=== PATIENT | male | born 1955 | race African-American/Black ===

== ENCOUNTER → 2020-12-24 10:18 | Outpatient (CLI) | payer MEDICARE, SELFPAY ==
--- NOTE | ~2020-12-24 | XR_ITS ---
EXAMINATION: XR abdomen/kub 1V EXAM DATE: 12/24/2020 10:42 INDICATION: Right flank pain for 2 weeks. History kidney stones with lithotripsy 2009. History hernia repair 2003. TECHNIQUE: Frontal projection of the upper abdomen, frontal projection lower abdomen/pelvis for inter pretation. Comparison is made to prior examination from 04/19/2014. FINDINGS: There is moderate amount of colonic stool and gas. No small bowel dilation, nonobstructiv e bowel gas pattern. Calcifications in the pelvis are believed to be phleboliths. No calcifications overlying the renal contours. There is no organomegaly suspected. There is elevated right hemidiap hragm. There are mild bony degenerative changes. IMPRESSION: 1. No suspicious calcifications. 2. Elevated right hemidiaphragm; paralysis not excludable. Consider fluoroscopic guided sniff test. Reviewed, dictated and finalized at location A. IMPRESSION: 1. No suspicious calcifications. 2. Elevated right hemidiaphragm; paralysis not excludable. Consider fluoroscopi c guided sniff test.
== END ==
PROVIDERS: PCP Internal Medicine; Visit Provider Urology
DX: N20.0 Calculus of kidney (principal)
CPT/HCPCS: 74018

== ENCOUNTER 2022-03-26 08:51 | Outpatient (CLI) | payer MEDICARE, SELFPAY ==
--- NOTE | ~2022-03-26 | US_ITS ---
US abdomen complete EXAMINATION: US Abdomen Complete INDICATION: Leukopenia PROCEDURE: Realtime High Resolution abdomen ultrasound. COMPARISON: No prior studies for comparison FINDINGS: Gallbladder is surgically absent. Common bile duct measures 2.9 mm. Liver echotexture is normal. There are multiple liver cysts, largest measuring 2.1 cm.. Pancreas wit hin normal limits. Pancreatic tail is obscured by bowel gas. Spleen is unremarkeable. Renal echotex ture is within normal limits bilaterally without hydronephrosis, contour deforming mass or renal ston e. Right kidney measures 10.3 cm. Left kidney measures 10.6 cm. Visualized aspects of the aorta and IVC are within normal limits. Portal vein is patent. IMPRESSION: 1: Liver cysts. 2: Status post cholecystectomy. Reviewed, dictated and finalized at location A.
== END 2022-03-26 08:52 | disposition home or self-care (01) ==
PROVIDERS: PCP Internal Medicine; Visit Provider Internal Medicine Hematology & Oncology
DX: D72.819 Decreased white blood cell count, unspecified (principal); K76.89 Other specified diseases of liver; Z90.49 Acquired absence of other specified parts of digestive tract
CPT/HCPCS: 76700

== ENCOUNTER 2023-02-01 09:53 | Outpatient (CLI) | payer MEDICARE, SELFPAY ==
[2023-02-01 10:10] LABS: Basophils Percent Auto 0.5 % (0.2-1.2); Eosinophils Percent Auto 0.8 % (0-4.4); Hematocrit 41.3 % (42.0-52.0); Hemoglobin 13.5 g/dL (14.0-18.0); Immature Granulocyte Absolute 0.02 K/mm3 (0.00-0.031); Immature Granulocyte Percent A 0.5 % (0-0.5); Lymphocytes Absolute Auto 1.67 K/mm3 (0.9-3.2); Mean Corpuscular HGB Conc 32.7 g/dl (32-36); Mean Corpuscular Hemoglobin 29.3 pg (26-34); Mean Corpuscular Volume 89.8 fl (80-100); Mean Platelet Volume 9.1 fl (7.4-10.4); Monocytes Absolute Auto 0.4 K/mm3 (0.1-0.6); Monocytes Percent Auto 10.3 % (2.6-8.5); Neutrophils Absolute Auto 1.8 K/mm3 (1.3-6.7); Neutrophils Percent Auto 45.9 % (45.5-73.1); Platelet Count Result 265 k/mm3 (150-375); Red Cell Distribution Width 13.3 % (11.5-14.5)
[2023-02-01 10:15] LABS: Blood Urea Nitrogen 13 mg/dL (8-26); Carbon Dioxide 30 mmol/L (22-30); Chloride 100 mmol/L (98-109); Estimated Glomerular Filt Rate > 60; Glucose 105 mg/dL (70-105); Ionized Calcium (POC) 1.17 mmol/L (1.11-1.31); Potassium 3.6 mmol/L (3.5-4.9); Sodium 139 mmol/L (138-146)
[2023-02-01 17:01] LABS: Alanine Aminotransferase 23 U/L (6-50); Albumin Level 4.4 g/dL (3.5-5.1); Alkaline Phosphatase 115 U/L (38-126); Anion Gap 6 mmol/L (8-16); Aspartate Amino Transferase 26 U/L (17-59); Bilirubin,Total 0.9 mg/dL (0.2-1.3); Blood Urea Nitrogen 14 mg/dL (9-20); Calcium 9.1 mg/dL (8.4-10.2); Carbon Dioxide 30 mmol/L (22-30); Chloride 101 mmol/L (98-107); Estimated Glomerular Filt Rate > 60; Glucose 101 mg/dL (65-110); Potassium 3.7 mmol/L (3.4-5.0); Sodium 137 mmol/L (137-145)
[2023-02-01 17:02] LABS: Iron 126 ug/dL (49-181)
[2023-02-01 17:17] LABS: Percent Iron Saturation 40 % (20-50)
[2023-02-01 18:05] LABS: Folic Acid 9.5 ng/mL (2.76->20)
== END 2023-02-01 09:54 | disposition home or self-care (01) ==
LOC: ANHLAB 09:54
PROVIDERS: PCP Internal Medicine; Visit Provider Internal Medicine Hematology & Oncology
DX: D72.819 Decreased white blood cell count, unspecified (principal); D64.9 Anemia, unspecified
CPT/HCPCS: 36415; 80047; 80053; 82607; 82728; 82746; 83540; 83550; 85025

== ENCOUNTER 2023-10-29 08:35 | Outpatient (CLI) | payer MEDICARE, SELFPAY ==
[2023-10-29 08:49] LABS: Basophils Percent Auto 0.6 % (0.2-1.2); Eosinophils Absolute Auto 0.1 K/mm3 (0-0.3); Eosinophils Percent Auto 1.4 % (0-4.4); Hematocrit 43.6 % (42.0-52.0); Hemoglobin 14.3 g/dL (14.0-18.0); Immature Granulocyte Absolute 0.01 K/mm3 (0.00-0.031); Immature Granulocyte Percent A 0.3 % (0-0.5); Lymphocytes Percent Auto 54.3 % (18.3-44.2); Mean Corpuscular HGB Conc 32.8 g/dl (32-36); Mean Corpuscular Hemoglobin 29.2 pg (26-34); Mean Platelet Volume 9.4 fl (7.4-10.4); Monocytes Absolute Auto 0.4 K/mm3 (0.1-0.6); Monocytes Percent Auto 11.1 % (2.6-8.5); Neutrophils Absolute Auto 1.1 K/mm3 (1.3-6.7); Neutrophils Percent Auto 32.3 % (45.5-73.1); Platelet Count Result 249 k/mm3 (150-375); Red Cell Distribution Width 12.9 % (11.5-14.5); White Blood Count 3.5 K/mm3 (4.5-10.0)
[2023-10-29 11:19] LABS: Iron 204 ug/dL (49-181)
[2023-10-29 11:25] LABS: Alanine Aminotransferase 23 U/L (6-50); Albumin Level 4.4 g/dL (3.5-5.1); Alkaline Phosphatase 99 U/L (38-126); Anion Gap 11 mmol/L (8-16); Aspartate Amino Transferase 29 U/L (17-59); Blood Urea Nitrogen 10 mg/dL (9-20); Calcium 9.4 mg/dL (8.4-10.2); Carbon Dioxide 29 mmol/L (22-30); Chloride 100 mmol/L (98-107); Estimated Glomerular Filt Rate > 60; Glucose 102 mg/dL (65-110); Potassium 3.8 mmol/L (3.4-5.0); Sodium 140 mmol/L (137-145)
[2023-10-29 11:32] LABS: Percent Iron Saturation 63 % (20-50)
[2023-10-29 12:26] LABS: Folic Acid 9.4 ng/mL (2.76->20)
== END 2023-10-29 08:36 | disposition home or self-care (01) ==
LOC: ANHLAB 08:36
PROVIDERS: PCP Internal Medicine; Visit Provider Internal Medicine Hematology & Oncology
DX: D72.819 Decreased white blood cell count, unspecified (principal); D64.9 Anemia, unspecified
CPT/HCPCS: 36415; 80053; 82607; 82728; 82746; 83540; 83550; 85025

== ENCOUNTER 2023-12-23 12:02 | Outpatient (CLI) | payer MEDICARE, SELFPAY ==
[2023-12-23 12:17] LABS: Hematocrit 44.5 % (42.0-52.0); Hemoglobin 14.4 g/dL (14.0-18.0); Mean Corpuscular HGB Conc 32.4 g/dl (32-36); Mean Corpuscular Hemoglobin 29.3 pg (26-34); Mean Corpuscular Volume 90.6 fl (80-100); Platelet Count Result 278 k/mm3 (150-375); Red Blood Count 4.91 M/mm3 (4.6-6.20); Red Cell Distribution Width 13.2 % (11.5-14.5)
[2023-12-23 12:18] LABS: Basophils Percent Auto 0.8 % (0.2-1.2); Eosinophils Absolute Auto 0.1 K/mm3 (0-0.3); Eosinophils Percent Auto 1.8 % (0-4.4); Immature Granulocyte Absolute 0.01 K/mm3 (0.00-0.031); Immature Granulocyte Percent A 0.3 % (0-0.5); Lymphocytes Absolute Auto 1.64 K/mm3 (0.9-3.2); Mean Platelet Volume 9.3 fl (7.4-10.4); Monocytes Absolute Auto 0.5 K/mm3 (0.1-0.6); Monocytes Percent Auto 12.3 % (2.6-8.5); Neutrophils Absolute Auto 1.8 K/mm3 (1.3-6.7); Neutrophils Percent Auto 43.8 % (45.5-73.1)
[2023-12-23 12:21] LABS: Blood Urea Nitrogen 18 mg/dL (8-26); Carbon Dioxide 28 mmol/L (22-30); Chloride 102 mmol/L (98-109); Estimated Glomerular Filt Rate > 60; Glucose 91 mg/dL (70-105); Ionized Calcium (POC) 1.22 mmol/L (1.11-1.31); Potassium 3.8 mmol/L (3.5-4.9); Sodium 143 mmol/L (138-146)
[2023-12-23 19:02] LABS: Vitamin B12 > 1000.0 pg/mL (239-931)
== END 2023-12-23 12:03 | disposition home or self-care (01) ==
LOC: ANHLAB 12:04
PROVIDERS: PCP Internal Medicine; Visit Provider Internal Medicine Hematology & Oncology
DX: D72.819 Decreased white blood cell count, unspecified (principal)
CPT/HCPCS: 36415; 80047; 82607; 82746; 85025

== ENCOUNTER 2024-12-21 13:02 | Outpatient (CLI) | payer MEDICARE, SELFPAY ==
[2024-12-21 13:20] LABS: Basophils Percent Auto 0.6 % (0.2-1.2); Eosinophils Absolute Auto 0.1 K/mm3 (0-0.3); Eosinophils Percent Auto 1.1 % (0-4.4); Hematocrit 40.8 % (42.0-52.0); Hemoglobin 13.5 g/dL (14.0-18.0); Immature Granulocyte Absolute 0.01 K/mm3 (0.00-0.031); Immature Granulocyte Percent A 0.2 % (0-0.5); Lymphocytes Absolute Auto 2.03 K/mm3 (0.9-3.2); Lymphocytes Percent Auto 43.5 % (18.3-44.2); Mean Corpuscular HGB Conc 33.1 g/dl (32-36); Mean Corpuscular Hemoglobin 29.8 pg (26-34); Mean Corpuscular Volume 90.1 fl (80-100); Mean Platelet Volume 9.8 fl (7.4-10.4); Monocytes Absolute Auto 0.6 K/mm3 (0.1-0.6); Monocytes Percent Auto 11.8 % (2.6-8.5); Neutrophils Percent Auto 42.8 % (45.5-73.1); Platelet Count Result 231 k/mm3 (150-375); Red Blood Count 4.53 M/mm3 (4.6-6.20); Red Cell Distribution Width 12.9 % (11.5-14.5); White Blood Count 4.7 K/mm3 (4.5-10.0)
--- OUTSIDE RECORDS SUMMARY | 2024-12-21 14:37 | XMS_ITS | Patient Health Record ---
Author Organization [facility] Office Address [address] [facility] [address] [facility] [address] [place] [address] Care Team Providers Care Platform Stapler Name Role Phone Prince Umair Unavailable [phone] REASON FOR REFERRAL No Information MEDICATIONS Medication SIG (Take, Route, Frequency, Duration) Notes Start Date End Date Status Furosemide 20 MG TAKE 1 TABLET EVERY DAY for 90 Active Calcitriol 0.25 MCG TAKE 1 CAPSULE EVERY OTHER DAY for 90 Active Vitamin D (Ergocalciferol) 1.25 MG (29132 UT) TAKE 1 CAPSULE ONE TIME WEEKLY for 90 Active Tamsulosin HCl 0.4 MG TAKE 1 CAPSULE ROSHNI RY DAY for 90 Active PROBLEMS Problem Type ICD Code Onset Dates Problem Status W/U Status Risk SNOMED Code Notes Problem Secondary hyperparathyroid ism, not elsewhere classified (E21.1) Active confirmed Secondary hyperparathyroidism (05436795) Problem Vitamin D deficiency, unspecified (E55.9) Active confirmed Vitamin D defic iency (49175745) Problem Anxiety disorder, unspecified (F41.9) Active confirmed Anxiety disorde r (192635998) Problem Chronic kidney disease, stage 2 (mild) (N18.2) Active confirmed Chronic kidne y disease stage 2 (709888193) Problem Renal osteodystrophy (N25.0) Active confirmed Renal osteodyst rophy (17483270) Problem Proteinuria, unspecified (R80.9) Active confirmed Proteinuria (19386933) Problem Essential hypertension (I10) Active confirmed Essential hypertension (38435412) Encounters Encounter Location Date Provider Diagnosis [place] [facility] [address] [facility] [address] [place] [address] 02/23/2024 Umair Morrison Chronic kidney disea se, stage 2 (mild) N18.2 ; Anxiety disorder, unspecified F41.9 ; Proteinuria, unspecified R80.9 ; Renal osteodystrophy N25.0 ; Secondary hyperparathyroidism, not elsewhere classified E21.1 and Vitamin D deficiency, unspecified E55.9 [facility] [address] [address] 05/24/2024 Umair Morrison Chronic kidney disea se, stage 2 (mild) N18.2 ; Essential hypertension I10 ; Renal osteodystrophy N25.0 ; Anxiety disorder, unspecified F41.9 ; Proteinuria, unspecified R80.9 ; Secondary hyperparathyroidism, not elsewhere classified E21.1 and Vitamin D deficiency, unspecified E55.9 [place] [facility] [address] [address] 08/23/2024 Umair Morrison Chronic kidney disea se, stage 2 (mild) N18.2 ; Anxiety disorder, unspecified F41.9 ; Proteinuria, unspecified R80.9 ; Renal osteodystrophy N25.0 ; Secondary hyperparathyroidism, not elsewhere classified E21.1 ; Vitamin D deficiency, unspecified E55.9 and Essential hypertension I10 [facility] [address] [address] 11/29/2024 Umair Morrison [facility] [place] [facility] [address] [place] [address] 12/06/2024 Umair Morrison Chronic kidney disea se, stage 2 (mild) N18.2 ; Anxiety disorder, unspecified F41.9 ; Proteinuria, unspecified R80.9 ; Renal osteodystrophy N25.0 ; Secondary hyperparathyroidism, not elsewhere classified E21.1 ; Vitamin D deficiency, unspecified E55.9 ; Essential hypertension I10 and Hypo-osmolality and hyponatremia E87.1 [facility] [address] [address] 12/06/2024 Umair Morrison ASSESSMENTS Encounter Date Diagnosis Assessment Notes Treatment Notes Treatment Clinical Notes Section Notes 02/23/2024 Chronic kidney disease, stage 2 (mild) (ICD-10 - N18.2) 05/24/2024 Chronic kidney disease, stage 2 (mild) (ICD-10 - N18.2) 05/24/2024 Essential hypertension (ICD-10 - I10) 08/23/2024 Chronic kidney disease, stage 2 (mild) (ICD-10 - N18.2) 12/06/2024 Anxiety disorder, unspecified (ICD-10 - F41.9) 12/06/2024 Chronic kidney disease, stage 2 (mild) (ICD-10 - N18.2) 12/06/2024 Proteinuria, unspecified (ICD-10 - R80.9) 08/23/2024 Anxiety disorder, unspecified (ICD-10 - F41.9) 05/24/2024 Renal osteodystrophy (ICD-10 - N25.0) 02/23/2024 Anxiety disorder, unspecified (ICD-10 - F41.9) 05/24/2024 Anxiety disorder, unspecified (ICD-10 - F41.9) 02/23/2024 Proteinuria, unspecified (ICD-10 - R80.9) 08/23/2024 Proteinuria, unspecified (ICD-10 - R80.9) 12/06/2024 Renal osteodystrophy (ICD-10 - N25.0) 12/06/2024 Secondary hyperparathyroidism , not elsewhere classified (ICD-10 - E21.1) 08/23/2024 Renal osteodystrophy (ICD-10 - N25.0) 02/23/2024 Renal osteodystrophy (ICD-10 - N25.0) 05/24/2024 Proteinuria, unspecified (ICD-10 - R80.9) 02/23/2024 Secondary hyperparathyroidism , not elsewhere classified (ICD-10 - E21.1) 05/24/2024 Secondary hyperparathyroidism , not elsewhere classified (ICD-10 - E21.1) 08/23/2024 Secondary hyperparathyroidism , not elsewhere classified (ICD-10 - E21.1) 12/06/2024 Vitamin D deficiency, unspecified (ICD-10 - E55.9) 08/23/2024 Vitamin D deficiency, unspecified (ICD-10 - E55.9) 05/24/2024 Vitamin D deficiency, unspecified (ICD-10 - E55.9) 12/06/2024 Essential hypertension (ICD-10 - I10) 02/23/2024 Vitamin D deficiency, unspecified (ICD-10 - E55.9) 12/06/2024 Hypo-osmolality and hyponatremia (ICD-10 - E87.1) 08/23/2024 Essential hypertension (ICD-10 - I10) PLAN OF TREATMENT Next Appt Details Provider Name:Umair Morrison , 01/17/2025 04:30:00 PM, [address] [facility], [facility] [address], [place], [address],
--- OUTSIDE RECORDS SUMMARY | 2024-12-21 14:37 | XMS_ITS ---
Author Organization [facility] Address [address] [place] [address] Care Team Providers Care Staff Research Scientist Name Role Phone Umair Morrison Unavailable [phone] Encounters Encounter Location Date Provider Diagnosis [facility] [place] [facility] [address] [place] [address] 12/06/2024 Umair Morrison Chronic kidney disea se, stage 2 (mild) N18.2 ; Anxiety disorder, unspecified F41.9 ; Proteinuria, unspecified R80.9 ; Renal osteodystrophy N25.0 ; Secondary hyperparathyroidism, not elsewhere classified E21.1 ; Vitamin D deficiency, unspecified E55.9 ; Essential hypertension I10 and Hypo-osmolality and hyponatremia E87.1 ASSESSMENTS Encounter Date Diagnosis Assessment Notes Treatment Notes Treatment Clinical Notes Section Notes 12/06/2024 Chronic kidney disease, stage 2 (mild) (ICD-10 - N18.2) 12/06/2024 Anxiety disorder, unspecified (ICD-10 - F41.9) 12/06/2024 Proteinuria, unspecified (ICD-10 - R80.9) 12/06/2024 Renal osteodystrophy (ICD-10 - N25.0) 12/06/2024 Secondary hyperparathyroidism , not elsewhere classified (ICD-10 - E21.1) 12/06/2024 Vitamin D deficiency, unspecified (ICD-10 - E55.9) 12/06/2024 Essential hypertension (ICD-10 - I10) 12/06/2024 Hypo-osmolality and hyponatremia (ICD-10 - E87.1) PLAN OF TREATMENT Next Appt Details Provider Name:Umair Morrison , 01/17/2025 04:30:00 PM, [address] [facility], [facility] [address], [place], [address], Progress Notes * Dinh CRUZOB: 3 (69 yo F)Acc No.[id number]:12/06/2024 Progress Notes Patient: Masha CRUZ Provider: MD JERAMIE, Macey.Yair.Wayne.P, F.A.S.N. :1955 Age:69 Y Sex:Female Date:12/06/2024 Address:[address] [place] [address] Subjective: * Chief Complaints: * * Medical History: Objective: Assessment: * Assessment: 1. Chronic kidney disease, stage 2 (mild) - N18.2 (Primary) 2. Anxiety disorder, unspecified - F41.9 3. Proteinuria, unspecified - R80.9 4. Renal osteodystrophy - N25.0 5. Secondary hyperparathyroidism, not elsewhere classified - E21.1 6. Vitamin D deficiency, unspecified - E55.9 7. Essential hypertension - I10 8. Hypo-osmolality and hyponatremia - E87.1 Plan: * Treatment: * Billing Information: * Visit Code: 74135 Office Visit, Est Pt., Level 4. * Procedure Codes: * Sign off status: Pending * Provider: MD JERAMIE, Macey.Yair.Wayne.P, F.A.S.N. Date: 12/06/2024
--- OUTSIDE RECORDS SUMMARY | 2024-12-21 14:38 | XMS_ITS | Clinical Summary ---
Author Organization [facility] Address [address] [facility] [place] [address] Care Team Providers Care Ecological Modeler Name Role Phone Rafael Oneal MD Primary Care Provider Allergies Active Allergy Reactions Criticality Noted Date Comments Enalapril Hives High 03/12/2022 Lisinopril Hives High 03/12/2022 Medications hydroCHLOROth iazide (MICROZIDE) 12.5 mg capsule hydrochlorothiazide 12.5 mg capsule Active atorvastatin (LIPITOR) 20 mg tablet atorvastatin 20 mg tablet Active metFORMIN (GLUCOPHAGE) 500 mg tablet metformin 500 mg tablet Active amLODIPine (NORVASC) 10 mg tablet amlodipine 10 mg tablet TAKE 1 TABLET EVERY DAY Active metoprolol succinate (TOPROL XL) 25 mg Extended Release 24 hour tablet Take 25 mg by mouth daily. 02/26/20 22 Active latanoprost (XALATAN) 0.005 % solution latanoprost 0.005 % eye drops Active aspirin (BRIANDA CHEWABLE) 81 mg Tablet, Chewable Take 81 mg by mouth daily. Active brimonidine-t imoloL (Combigan) 0.2-0.5 % solution 1 Drop every 12 hours. Active cyanocobalami n 1,000 mcg Tablet Take 1,000 mcg by mouth daily. Active Active Problems Problem Noted Date Diagnosed Date Leukopenia 03/12/2022 Encounters Date Type Department Care Team Description 12/18/2024 External Device Data STL ABSTRACTION Provider, Abstract 12/05/2024 External Device Data [facility] ABSTRACTION Provider, Abstract 11/08/2024 External Device Data [facility] ABSTRACTION Provider, Abstract 11/02/2024 External Device Data ST[facility] ABSTRACTION Provider, Abstract from Last 3 Months Family History Medical History Relation Name Comments Diabetes Brother 1 Brain Cancer Brother 4 Thyroid Cancer Father Stroke Mother Relation Name Status Comments Brother 1 Alive Brother 2 Alive Brother 3 Alive Brother 4 Alive Father Mother Sister Alive Social History Tobacco Use Types Packs/Day Years Used Date Smoking Tobacco: Never Smokeless Tobacco: Never Tobacco Cessation:Counseling Given: Not Answered Alcohol Use Standard Drinks/Week Comments Yes 0 (1 standard drink = 0.6 oz pur e alcohol) Sex and Gender Information Value Date Recorded Sex Assigned at Not on file Legal Sex Male 11:22 AM CDT Gender Identity Not on file Sexual Orientation Not on file Last Filed Vital Signs Vital Sign Reading Time Taken Comments Blood Pressure 125/62 12/23/2023 1:05 PM CDT Pulse 77 12/23/2023 1:05 PM CDT Temperature 36.4 C (97.6 F) 12/23/2023 1:05 PM CDT Respiratory Rate 14 12/23/2023 1:05 PM CDT Oxygen Saturation 98% 12/23/2023 1:05 PM CDT Inhaled Oxygen Concentration - - Weight 64.4 kg (142 lb) 12/23/2023 1:05 PM CDT Height 175.3 cm (5' 9 ) 08/03/2022 9:20 AM CDT Body Mass Index 20.97 08/03/2022 9:20 AM CDT Plan of Treatment Upcoming Encounters Date Type Department Care Team (Late st Contact Info) Description 12/25/2024 11:00 AM CDT Office Visit [facility] Oncology and Hematology [facility] [address] [facility] [address] [place] [address] Mello Juan MD [address] [facility] [address] [place] [address] Health Maintenance Due Date Last Done Comments DIABETES ANNUAL FOOT EXAM 1971 DIABETES ANNUAL RETINAL EXAM 1971 DIABETES HBA1C Q 6 MONTHS 1971 DIABETES MICROALBUMIN ANNUAL SCREEN 1971 LDL CHOLESTEROL ANNUAL 1971 DTAP/TDAP/TD VACCINES (1 - Tdap) 01/09/1972 COLORECTAL SCREENING 1998 Colorectal Cancer Screening 1998 FIT-DNA Q 3 years 1998 FIT/FOBT Q 1 year 1998 Flex Sig/CT Colonography Q 5 years 1998 ZOSTER VACCINE (1 of 2) 2003 INFLUENZA VACCINE (#1) 2024 , 07/16/2022, 08/04/2021, Additional history exists Medicare Ad[place] ([place]) Preventative Visit/Annual Wellness Visit 10/11/2024 RSV VACCINE (60+ or ) (1 - 1-dose 75+ series) 01/09/2028 PNEUMOCOCCAL VACCINE 50+ YEARS Completed 08/08/2019 , 01/10/2018 Insurance [employer] [facility] MCR Care Teams Ecological Modeler Relationship Specialty Start Date End Date Rafael Oneal MD PCP - General Internal Medicine 03/12/22
--- OUTSIDE RECORDS SUMMARY | 2024-12-21 14:38 | XMS_ITS ---
Author Organization [facility] Address [address] [place] [address] Care Team Providers Care Box Cutter Name Role Phone Prince Umair Unavailable [phone] MEDICATIONS Medication SIG (Take, Route, Frequency, Duration) Notes Start Date End Date Status Ciprofloxacin HCl 500 MG 1 tablet Orally every 12 hrs for 10 days 12/06/2024 12/16/2024 Active Encounters Encounter Location Date Provider Diagnosis [place] [facility] [address] [facility] [address] [place] [address] 12/06/2024 Umair Morrison PLAN OF TREATMENT Medication Medication Name Sig Start Date Stop Date Notes Ciprofloxacin HCl 500 MG 1 tablet Orally every 12 hrs for 10 days 12/06/2024 12/16/2024 Next Appt Details Provider Name:Umair Morrison , 01/17/2025 04:30:00 PM, 20[address] [facility], [facility] [address], [place], [address], Progress Notes * Dinh CRUZOB: (69 yo F)Acc No.[id number]:12/06/2024 Patient: Masha CRUZ :1955 Age:69 Y Sex:Female Address:[address] [place] [address] * Refills Start Ciprofloxacin HCl Tablet, 500 MG, Orally, 20 Tablet, 1 tablet, every 12 hrs, 10 days * * Date:
--- OUTSIDE RECORDS SUMMARY | 2024-12-21 14:38 | XMS_ITS ---
Author Organization [facility] Address [address] [place] [address] Care Team Providers Care Park Guide Name Role Phone Prince Umair Unavailable [phone] Encounters Encounter Location Date Provider Diagnosis [place] [facility] [address] [facility] [address] [place] [address] 11/29/2024 Umair Morrison PLAN OF TREATMENT Next Appt Details Provider Name:Umair Morrison , 01/17/2025 04:30:00 PM, [address] [facility], [address], [place], [address], Progress Notes * Dinh CRUZOB: (69 yo F)Acc No.[id number]:11/29/2024 Progress Notes Patient: Masha CRUZ Provider: MD JERAMIE, Macey.Yair.C.P, F.A.S.N. :1955 Age:69 Y Sex:Female Date:11/29/2024 Address:[address] [place], [place] [id number] Subjective: * Chief Complaints: * * Medical History: Objective: Assessment: Plan: * Treatment: * Billing Information: * Visit Code: * Procedure Codes: * Sign off status: Pending * Provider: MD JERAMIE, Gómez.C.P, F.A.S.N. Date: 11/29/2024
--- OUTSIDE RECORDS SUMMARY | 2024-12-21 14:39 | XMS_ITS | CONTINUITY OF CARE DOCUMENT ---
Author Name shelley rosa Address Unknown Organization [facility] Address [address] [facility] [address] [place] [address] Phone [phone] Care Team Providers Care Warehouse Trainer Name Role Phone Brianna NASH, El Krishnamurthy Unavailable [phone] CHICHI VEE MD Unavailable GABO EARLY MD Unavailable PROBLEMS Condition Status Date Provider Notes Hypertension active El Reed MD Diabetes, Type 2 active El Reed MD Hyperlipidemia active El Reed MD Covid vaccine active El Reed MD PVC's active El Reed MD Cardiovascular Condition Screening active Sloan Reed MD Abnormal electrocardiogram active El Reed MD Palpitations active El Reed MD Cardiology examination active El lang MD ENCOUNTERS Date Type Provider Location Encounter Diag nosis - In-person encounter Office Visit El Reed MD [facility] - In-person encounter Office Visit El Reed MD [facility] Cardiology examination - In-person encounter Office Visit El Reed MD [facility] - In-person encounter Office Visit El Reed MD [facility] - In-person encounter Office Visit El Reed MD [facility] Palpitations - In-person encounter Office Visit El Reed MD [facility] - In-person encounter Office Visit El Reed MD [facility] - In-person encounter Office Visit El Reed MD [facility] HypertensionDiabetes, Type 2HyperlipidemiaCovid vaccinePVC'sCardiovascul ar Condition ScreeningAbnormal electrocardiogram VITAL SIGNS Date Observation Value Provider Body Mass Index (Ratio) 21.41 kg/m2 Sundeep Arora blood pressure, diastolic 70 mm[Hg] roxie [facility] blood pressure, systolic 132 mm[Hg] [facility] oxygen saturation, oximetry 98 % [facility] respiratory rate E&M 16 /min [facility] pulse rate 60 /min [facility] weight E&M 145 [lb_av] [facility] blood pressure, cuff size regular Rufina roxie [facility] height E&M 69 [in_i] [facility] Body Mass Index (Ratio) 21.41 kg/m2 Petros Sarmiento blood pressure, cuff size regular Que Grant blood pressure, diastolic 74 mm[Hg] Ta bitha Grant blood pressure, systolic 120 mm[Hg] Tab ithchelsea Grant oxygen saturation, oximetry 96 % Karlachelsea Grant pulse rate 71 /min Karla Rudy weight E&M 145 [lb_av] Karlachelsea Grant respiratory rate E&M 12 /min Karla Grant height E&M 69 [in_i] Karla Grant Body Mass Index (Ratio) 21.71 kg/m2 Sundeep Arora blood pressure, diastolic 70 mm[Hg] Li nkLogic blood pressure, systolic 131 mm[Hg] Marce kLogic blood pressure, cuff size regular Ja rret blood pressure, diastolic 70 mm[Hg] Ja rret blood pressure, systolic 131 mm[Hg] Jar ret pulse rate 70 /min Bebo respiratory rate E&M 12 /min Bebo oxygen saturation, oximetry 98 % Bebo weight E&M 147 [lb_av] Bebo y height E&M 69 [in_i] Bebo y Body Mass Index (Ratio) 21.26 kg/m2 Lalitha Reed MD blood pressure, diastolic -1 mm[Hg] María myraLogterrie blood pressure, systolic 115 mm[Hg] Marce Muraliogic blood pressure, diastolic 69 mm[Hg] Cristin shaw Tena blood pressure, systolic 115 mm[Hg] [facility] analy Tena oxygen saturation, oximetry 98 % Twila Tena pulse rate 71 /min Twila Tena respiratory rate E&M 18 /min Twila Tena weight E&M 144 [lb_av] Twila Tena blood pressure, cuff size regular valeria Tena height E&M 69 [in_i] Twila Madsen Body Mass Index (Ratio) 22.38 kg/m2 Lalitha Reed MD blood pressure, diastolic 82 mm[Hg] María myraLogterrie blood pressure, systolic 138 mm[Hg] Marce Carrionogterrie blood pressure, diastolic 82 mm[Hg] [facility] blood pressure, systolic 138 mm[Hg] Marya gonzalez Levi oxygen saturation, oximetry 98 % Keesha Levi pulse rate 72 /min Keesha Levi respiratory rate E&M 18 /min Keesah Krishna carl weight E&M 151.6 [lb_av] Keesha Levi height E&M 69 [in_i] Keesha Levi Body Mass Index (Ratio) 21.85 kg/m2 Lalitha Reed MD blood pressure, cuff size large Ke rri Jesseuenenfeldvic blood pressure, diastolic 77 mm[Hg] Ke rri Smithanenfeldvic blood pressure, systolic 134 mm[Hg] Zack ri Mindy oxygen saturation, oximetry 98 % Shahida Mindy respiratory rate E&M 14 /min Shahida G jocelyneenenfelder pulse rate 83 /min Shahida Xochitl lder weight E&M 148 [lb_av] Shahida Smithanenfe lder height E&M 69 [in_i] Shahida Gruenenfe lder Body Mass Index (Ratio) 21.85 kg/m2 Lalitha Reed MD blood pressure, diastolic 78 mm[Hg] María nkLogic blood pressure, systolic 148 mm[Hg] Marce kLogic blood pressure, diastolic 78 mm[Hg] Ca therine Anand blood pressure, systolic 148 mm[Hg] Cat herine Anand oxygen saturation, oximetry 97 % Anamika Anand respiratory rate E&M 16 /min Catheri ne Kinde pulse rate 66 /min Anamika Anand weight E&M 148 [lb_av] Anamika Anand blood pressure, cuff size large Ca therine Kinde height E&M 69 [in_i] Anamika Kinde weight E&M 153 [lb_av] Dragan Hernandez yobani Body Mass Index (Ratio) 22.59 kg/m2 Lalitha Reed MD blood pressure, diastolic 73 mm[Hg] Li nkLogic blood pressure, systolic 154 mm[Hg] Marce kLogic blood pressure, diastolic 73 mm[Hg] Ca therine Anand blood pressure, systolic 154 mm[Hg] Cat herine Kinde oxygen saturation, oximetry 98 % Anamika Kinde respiratory rate E&M 16 /min Catheri ne Anand pulse rate 95 /min Anamika Anand blood pressure, cuff size regular Ca therine Kinde weight E&M 153 [lb_av] Anamika Anand height E&M 69 [in_i] Anamika Anand ALLERGIES Allergy Name Onset Date Reaction Criticality Status RADHA INHIBITORS High Criticality acti ve HISTORY OF MEDICATION USE Medication Status Instructions Dates Provider Indications Com ments furosemide 20 mg tablet active Noel Riturosalinan ergocalciferol (vitamin D2) 1,250 mcg (50,000 unit) capsule active Noel Mohanan calcitriol 0.25 mcg capsule active Noel Mohanan aspirin 81 mg tablet,delayed release (DR/EC) active TAKE 1 TABLET EVERY DAY [facility] metoprolol succinate 25 mg tablet extended release 24 hr active TAKE 1 TABLET EVERY DAY Iris Gasca RN aspirin 81 mg tablet,delayed release (DR/EC) completed Take 1 tablet by mouth once a day - [facility] Toprol XL 25 mg tablet extended release 24 hr completed Take 1 tablet by mouth once a day - Bebo Hwang Toprol XL 25 mg tablet extended release 24 hr completed TAKE 1 TABLET DAILY - Shahida [place] metformin 500 mg tablet active by mouth twice a day Anamika Kinde atorvastatin 20 mg tablet active Anamika Anand amlodipine 10 mg tablet active Anamika Kinde SOCIAL HISTORY Date Observation Value Provider smoking status Never smoker El lang MD smoking status Never smoker El lang MD smoking status Never smoker Twila Madsen number of grandchildren El Reed MD social history reviewed E&M revi ewed - no changes required El Reed MD social history E&M S moking History: Candy heller has never smoked. El Reed MD smoking status Never smoker Keesha Sims social history E&M S moking History: Candy heller has never smoked. El Reed MD social history reviewed E&M revi ewed - no changes required El Reed MD smoking status Never smoker Shahida Elida delacruz smoking status Never smoker Anamika Lucila s social history E&M S moking History: Candy heller has never smoked. El Reed MD social history reviewed E&M revi ewed - no changes required El Reed MD smoking status Never smoker Anamika Lucila s INSURANCE PROVIDERS Payer name Policy type / Coverage type [place] red libertarian ID [employer] HMO [id number] ADVANCE DIRECTIVES Name Date DISCUSSED - NO DECISION MADE TREATMENT PLAN Date Name Performer [id number],C, C ONCLUSIONS: 1 . Normal left ventricular systolic function. Normal left ventricular size. Normal left ventricular wall thickness. There is E to A w ave reversal consistent with impaired LV relaxation. E/E': 5.1 Left ventricular ejection fraction is measured at 55 %. 2 . Normal right ventricular size. Normal right ventricular systolic function. 3 . Thin and hypermobile atrial septum. 4 . No significant valvular abnormalities. E lectronically signed by El Reed MD on 02/19/2022 at 8:04 AM. C ONCLUSIONS: 1 . Sinus bradycardia. Poor R wave progression. Non-specific T wave abnormality Old anterior wall myocardial infarction. 2 . Normal walking Regadenoson ECG with no ischemic ST or T changes. Threre is no ECG evidence of myocardial ischemia w ith vasodilator stress and simultaneous low-level exercise. 3 . Occasional PVCs seen during stress portion of the exam. 4 . Normal left ventricle size. 5 . Left Ventricular Ejection Fraction is 55 % TID: 1.19. 6 . Normal myocardial perfusion imaging with no evidence of ischemia or scar. November 20, 2022 C 2d2ck tele May 21, 2023 c heck tele El Reed MD [id number],C, H is updated medication list for this problem includes: Aspirin 81 Mg Tablet,delayed Release (Aspirin) ..... Take 1 tablet by mouth once a day Toprol Xl 25 Mg Tablet Extended Release 24 Hr (Metoprolol succinate) ..... Take 1 tablet by mouth once a day Amlodipine 10 Mg Tablet (Amlodipine) BP today: 115/69 P rior BP: 138/82 (11/20/2022) El Reed MD [id number],C, H is updated medication list for this problem includes: Aspirin 81 Mg Tablet,delayed Release (Aspirin) ..... Take 1 tablet by mouth once a day Metformin 500 Mg Tablet (Metformin) ..... By mouth twice a day El Reed MD [id number],C, H is updated medication list for this problem includes: Atorvastatin 20 Mg Tablet (Atorvastatin) El Reed MD [id number],C, C heck tele on Toprol XL 25mg m ag was 1.9. k is 4.1 El Reed MD [id number],Wayne C heck echo for LVH and PVCs. C heck tele 24 hr PVCs T readmill stress test, abnormal EKG Nuclear regadenoson was normal, no ischemia, EF 55%. El Reed MD [id number],C, V accinated x3. Never had COVID. El Reed MD [id number],C, H is updated medication list for this problem includes: Toprol Xl 25 Mg Tablet Extended Release 24 Hr (Metoprolol succinate) ..... Take 1 tablet by mouth once a day Amlodipine 10 Mg Tablet (Amlodipine) El Reed MD [id number],C, C ONCLUSIONS: 1 . Normal left ventricular systolic function. Normal left ventricular size. Normal left ventricular wall thickness. There is E to A w ave reversal consistent with impaired LV relaxation. E/E': 5.1 Left ventricular ejection fraction is measured at 55 %. 2 . Normal right ventricular size. Normal right ventricular systolic function. 3 . Thin and hypermobile atrial septum. 4 . No significant valvular abnormalities. E lectronically signed by El Reed MD on 02/19/2022 at 8:04 AM. C ONCLUSIONS: 1 . Sinus bradycardia. Poor R wave progression. Non-specific T wave abnormality Old anterior wall myocardial infarction. 2 . Normal walking Regadenoson ECG with no ischemic ST or T changes. Threre is no ECG evidence of myocardial ischemia w ith vasodilator stress and simultaneous low-level exercise. 3 . Occasional PVCs seen during stress portion of the exam. 4 . Normal left ventricle size. 5 . Left Ventricular Ejection Fraction is 55 % TID: 1.19. 6 . Normal myocardial perfusion imaging with no evidence of ischemia or scar. November 20, 2022 C heck tele El Reed MD [id number],S,A LLERGIC REACTION TO LISINOPRIL H is updated medication list for this problem includes: Metformin 500 Mg Tablet (Metformin) ..... By mouth twice a day El Reed MD [id number],C,Check tele on Toprol XL 25mg El Reed MD [id number],C, T readmill stress test was normal with multiple PVCs. Bigeminy and NSVT. He will be getting a regadenosine stress. Telemtry monitor also demonstrated frequent PVCs. ADD TOPROL XL November 20, 2022 Wayne Reed MD [id number],C,H AD REACTION TO LISINOPRIL, ANGIOEDEMA. H is updated medication list for this problem includes: Toprol Xl 25 Mg Tablet Extended Release 24 Hr (Metoprolol succinate) ..... Take 1 tablet daily Amlodipine 10 Mg Tablet (Amlodipine) El Reed MD [id number],C, H is updated medication list for this problem includes: Atorvastatin 20 Mg Tablet (Atorvastatin) El Reed MD [id number],C, H is updated medication list for this problem includes: Metformin 500 Mg Tablet (Metformin) ..... By mouth twice a day El Reed MD [id number],C, C ONCLUSIONS: 1 . Normal left ventricular systolic function. Normal left ventricular size. Normal left ventricular wall thickness. There is E to A w ave reversal consistent with impaired LV relaxation. E/E': 5.1 Left ventricular ejection fraction is measured at 55 %. 2 . Normal right ventricular size. Normal right ventricular systolic function. 3 . Thin and hypermobile atrial septum. 4 . No significant valvular abnormalities. E lectronically signed by El Reed MD on 02/19/2022 at 8:04 AM. C ONCLUSIONS: 1 . Sinus bradycardia. Poor R wave progression. Non-specific T wave abnormality Old anterior wall myocardial infarction. 2 . Normal walking Regadenoson ECG with no ischemic ST or T changes. Threre is no ECG evidence of myocardial ischemia w ith vasodilator stress and simultaneous low-level exercise. 3 . Occasional PVCs seen during stress portion of the exam. 4 . Normal left ventricle size. 5 . Left Ventricular Ejection Fraction is 55 % TID: 1.19. 6 . Normal myocardial perfusion imaging with no evidence of ischemia or scar. El Reed MD [id number],C, V accinated x3. Never had COVID. El Reed MD [id number],S, T readmill stress test was normal with multiple PVCs. Bigeminy and NSVT. He will be getting a regadenosine stress. Telemtry monitor also demonstrated frequent PVCs. ADD TOPROL XL 25 El Reed MD [id number],C, C heck echo for LVH and PVCs. C heck tele 24 hr PVCs T readmill stress test, abnormal EKG Nuclear regadenoson was normal, no ischemia, EF 55%. El Reed MD [id number],C, H is updated medication list for this problem includes: Atorvastatin 20 Mg Tablet (Atorvastatin) February 25, 2022 L ipid panel looked good. 01/14/22 El Reed MD [id number],S,T readmill stress test was normal with multiple PVCs. Bigeminy and NSVT. He will be getting a regadenosine stress. Telemtry monitor also demonstrated frequent PVCs. ADD TOPROL XL 25 El Reed MD [id number],C,C ONCLUSIONS: 1 . Normal left ventricular systolic function. Normal left ventricular size. Normal left ventricular wall thickness. There is E to A w ave reversal consistent with impaired LV relaxation. E/E': 5.1 Left ventricular ejection fraction is measured at 55 %. 2 . Normal right ventricular size. Normal right ventricular systolic function. 3 . Thin and hypermobile atrial septum. 4 . No significant valvular abnormalities. E lectronically signed by El Reed MD on 02/19/2022 at 8:04 AM. El Reed MD [id number],S,CHeck stress and telemonitor. El Reed MD [id number],C,C heck echo for LVH and PVCs. C heck tele 24 hr PVCs T readmill stress test, abnormal EKG El Reed MD [id number],C,A 1c 5.9 H is updated medication list for this problem includes: Metformin 500 Mg Tablet (Metformin) ..... By mouth twice a day El Reed MD [id number],C,L ipid panel was well controlled on labs 01/30 H is updated medication list for this problem includes: Atorvastatin 20 Mg Tablet (Atorvastatin) El Reed MD [id number],S,Vaccinated x3 . Never had COVID. El Reed MD [id number],C, B P today: 154/73 His updated medication list for this problem includes: Amlodipine 10 Mg Tablet (Amlodipine) El Reed MD Cardiology: H is updated medication list for this problem includes: Furosemide 20 Mg Tablet (Furosemide) Metoprolol Succinate 25 Mg Tablet Extended Release 24 Hr (Metoprolol succinate) ..... Take 1 tablet every day Aspirin 81 Mg Tablet,delayed Release (dr/ec) (Aspirin) ..... Take 1 tablet every day Amlodipine 10 Mg Tablet (Amlodipine) BP today: 132/70 P rior BP: 120/74 (05/19/2024) El Reed MD Cardiology:CONCLUSIO NS: 1 . Sinus bradycardia. Poor R wave progression. Non-specific T wave abnormality Old anterior wall myocardial infarction. 2 . Normal walking Regadenoson ECG with no ischemic ST or T changes. Threre is no ECG evidence of myocardial ischemia w ith vasodilator stress and simultaneous low-level exercise. 3 . Occasional PVCs seen during stress portion of the exam. 4. Normal left ventricle size. 5 . Left Ventricular Ejection Fraction is 55 % TID: 1.19. 6 . Normal myocardial perfusion imaging with no evidence of ischemia or scar. November 20, 2022 C heck tele May 21, 2023 c heck tele November 19, 2023 T lopez from 06/11/23Sinus Rhythm with rare Ventricular ectopics and rare Supraventricular ectopics. The a verage heart rate was 67bpm with a maximum rate of 129bpm and a minimum r ate of 47bpm. VE?s were documented as couplets and isolated beats. SVE?s were d ocumented as couplets and isolated beats. & #13;This visit has been a part of the consistent, comprehensive, and ongoing management of the chronic medical condition(s) listed above for the patient. November 17, 2024 P alpitations are controlled. On beta poonam. El Reed MD Cardiology: H is updated medication list for this problem includes: Aspirin 81 Mg Tablet,delayed Release (dr/ec) (Aspirin) ..... Take 1 tablet every day Metformin 500 Mg Tablet (Metformin) ..... By mouth twice a day El Reed MD Cardiology: Wayne beltran tele on Toprol XL 25mg m ag was 1.9. k is 4.1 November 19, 2023 N o new palps noted. Remains on BB. His updated medication list for this problem includes: Metoprolol Succinate 25 Mg Tablet Extended Release 24 Hr (Metoprolol succinate) ..... Take 1 tablet every day Aspirin 81 Mg Tablet,delayed Release (dr/ec) (Aspirin) ..... Take 1 tablet every day Amlodipine 10 Mg Tablet (Amlodipine) El Reed MD Cardiology: C verok echo for LVH and [facility]Cs[facility] T readmill stress test, abnormal EKG Nuclear regadenoson was normal, no ischemia, EF 55%. May 19, 2024 check echo for dyastolic dysfunciton. November 17, 2024 E cho 06/27/24 C ONCLUSIONS: 1 . Normal left ventricular systolic function. Normal left ventricular wall thickness. Mild enlargement of left ventricular c hamber. There is E to A wave reversal consistent with impaired LV relaxation. E/E': 7.3 Left ventricular ejection fraction is m easured at 55 %. 2 . Normal right ventricular size. Normal right ventricular systolic function. 3 . The intra-atrial septum is intact with no shunt visualized by color Doppler and agitated saline contrast injection. Thin and h ypermobile atrial septum. 4 . There is non-specific thickening of the mitral valve leaflets. There is trace physiologic mitral valve regurgitation. 5 . The tricuspid valve is normal in appearance and function. There is trace physiologic tricuspid valve regurgitation. El Reed MD Cardiology: I mproved C ONCLUSIONS: 1 . Normal left ventricular systolic function. Normal left ventricular size. Normal left ventricular wall thickness. There is E to A w ave reversal consistent with impaired LV relaxation. E/E': 5.1 Left ventricular ejection fraction is measured at 55 %. 2 . Normal right ventricular size. Normal right ventricular systolic function. 3 . Thin and hypermobile atrial septum. 4 . No significant valvular abnormalities. E lectronically signed by El Reed MD on 02/19/2022 at 8:04 AM. C ONCLUSIONS: 1 . Sinus bradycardia. Poor R wave progression. Non-specific T wave abnormality Old anterior wall myocardial infarction. 2 . Normal walking Regadenoson ECG with no ischemic ST or T changes. Threre is no ECG evidence of myocardial ischemia w ith vasodilator stress and simultaneous low-level exercise. 3 . Occasional PVCs seen during stress portion of the exam. 4 . Normal left ventricle size. 5 . Left Ventricular Ejection Fraction is 55 % TID: 1.19. 6 . Normal myocardial perfusion imaging with no evidence of ischemia or scar. November 20, 2022 C [place] tele May 21, 2023 c [employer] November 19, 2023 T lopez from 06/11/23Sinus Rhythm with rare Ventricular ectopics and rare Supraventricular ectopics. The a verage heart rate was 67bpm with a maximum rate of 129bpm and a minimum r ate of 47bpm. VE?s were documented as couplets and isolated beats. SVE?s were d ocumented as couplets and isolated beats. El Reed MD Cardiology: T readmill stress test was normal with multiple PVCs. Bigeminy and NSVT. He will be getting a regadenosine stress. Telemtry monitor also demonstrated frequent PVCs. A DD TOPROL XL 25 November 20, 2022 C [employer] S inus Rhythm with rare Ventricular ectopics and rare Supraventricular ectopics. The Sinus Rhythm with rare Ventricular e ctopics and rare Supraventricular ectopics. The a verage heart rate was 67bpm with a maximum rate of 129bpm and a minimum average heart rate was 67bpm with a maximum r ate of 129bpm and a minimum r ate of 47bpm. VE's were documented as couplets and isolated beats. SVE's were rate of 47bpm. VE's were documented as c ouplets and isolated beats. SVE's were d ocumented as couplets and isolated beats. documented as couplets and isolated beats. El Reed MD Cardiology:This visi t has been a part of the consistent, comprehensive, and ongoing management of the chronic medical condition(s) listed above for the patient. \ O rders: 9213 MOD 30-39min (CPT-72308) C omplex e/m visit add on (G2) E cho with Bubbles ([id number]) El Reed MD Cardiology: C heck echo for LVH and PVCs. C heck tele 24 hr PVCs T readmill stress test, abnormal EKG Nuclear regadenoson was normal, no ischemia, EF 55%. May 19, 2024 c heck echo for dyastolic dysfunciton. El Reed MD Cardiology: N eeds bloodwork H is updated medication list for this problem includes: Aspirin 81 Mg Tablet,delayed Release (Aspirin) ..... Take 1 tablet by mouth once a day Metformin 500 Mg Tablet (Metformin) ..... By mouth twice a day El Reed MD Cardiology:This visi t has been a part of the consistent, comprehensive, and ongoing management of the chronic medical condition(s) listed above for the patient. Orders: 9213 MOD 30-39min (CPT-36312) C omplex e/m visit add on (G2211) E cho with Bubbles ([id number]) His updated medication list for this problem includes: Aspirin 81 Mg Tablet,delayed Release (dr/ec) (Aspirin) ..... Take 1 tablet every day Metoprolol Succinate 25 Mg Tablet Extended Release 24 Hr (Metoprolol succinate) ..... Take 1 tablet every day Amlodipine 10 Mg Tablet (Amlodipine) El Reed MD Cardiology:Needs blo odwork H is updated medication list for this problem includes: Aspirin 81 Mg Tablet,delayed Release (Aspirin) ..... Take 1 tablet by mouth once a day Metformin 500 Mg Tablet (Metformin) ..... By mouth twice a day El Reed MD Cardiology:Has not h ad bloodwork recent H is updated medication list for this problem includes: Atorvastatin 20 Mg Tablet (Atorvastatin) El Reed MD Cardiology: C heck tele on Toprol XL 25mg m ag was 1.9. k is 4.1 November 19, 2023 N o new palps noted. Remains on BB. El Reed MD Cardiology:Improved C ONCLUSIONS: 1 . Normal left ventricular systolic function. Normal left ventricular size. Normal left ventricular wall thickness. There is E to A w ave reversal consistent with impaired LV relaxation. E/E': 5.1 Left ventricular ejection fraction is measured at 55 %. 2 . Normal right ventricular size. Normal right ventricular systolic function. 3 . Thin and hypermobile atrial septum. 4 . No significant valvular abnormalities. E lectronically signed by El Reed MD on 02/19/2022 at 8:04 AM. C ONCLUSIONS: 1 . Sinus bradycardia. Poor R wave progression. Non-specific T wave abnormality Old anterior wall myocardial infarction. 2 . Normal walking Regadenoson ECG with no ischemic ST or T changes. Threre is no ECG evidence of myocardial ischemia w ith vasodilator stress and simultaneous low-level exercise. 3 . Occasional PVCs seen during stress portion of the exam. 4 . Normal left ventricle size. 5 . Left Ventricular Ejection Fraction is 55 % TID: 1.19. 6 . Normal myocardial perfusion imaging with no evidence of ischemia or scar. November 20, 2022 C heck tele May 21, 2023 check tele November 19, 2023 T lopez from 06/11/23Sinus Rhythm with rare Ventricular ectopics and rare Supraventricular ectopics. The a verage heart rate was 67bpm with a maximum rate of 129bpm and a minimum r ate of 47bpm. VE?s were documented as couplets and isolated beats. SVE?s were d ocumented as couplets and isolated beats. El Reed MD Cardiology: C ONCLUSIONS: 1 . Normal left ventricular systolic function. Normal left ventricular size. Normal left ventricular wall thickness. There is E to A w ave reversal consistent with impaired LV relaxation. E/E': 5.1 Left ventricular ejection fraction is measured at 55 %. 2 . Normal right ventricular size. Normal right ventricular systolic function. 3 . Thin and hypermobile atrial septum. 4 . No significant valvular abnormalities. E lectronically signed by El Reed MD on 02/19/2022 at 8:04 AM. C ONCLUSIONS: 1 . Sinus bradycardia. Poor R wave progression. Non-specific T wave abnormality Old anterior wall myocardial infarction. 2 . Normal walking Regadenoson ECG with no ischemic ST or T changes. Threre is no ECG evidence of myocardial ischemia w ith vasodilator stress and simultaneous low-level exercise. 3 . Occasional PVCs seen during stress portion of the exam. 4 . Normal left ventricle size. 5 . Left Ventricular Ejection Fraction is 55 % TID: 1.19. 6 . Normal myocardial perfusion imaging with no evidence of ischemia or scar. November 20, 2022 Wayne Ensygnia tele May 21, 2023 c Ensygnia tele El Reed MD Cardiology: H is updated medication list for this problem includes: Aspirin 81 Mg Tablet,delayed Release (Aspirin) ..... Take 1 tablet by mouth once a day Toprol Xl 25 Mg Tablet Extended Release 24 Hr (Metoprolol succinate) ..... Take 1 tablet by mouth once a day Amlodipine 10 Mg Tablet (Amlodipine) BP today: 115/69 P rior BP: 138/82 (11/20/2022) El Reed MD Cardiology: H is updated medication list for this problem includes: Aspirin 81 Mg Tablet,delayed Release (Aspirin) ..... Take 1 tablet by mouth once a day Metformin 500 Mg Tablet (Metformin) ..... By mouth twice a day El Reed MD Cardiology: H is updated medication list for this problem includes: Atorvastatin 20 Mg Tablet (Atorvastatin) El Reed MD Cardiology: Wayne Ensygnia tele on Toprol XL 25mg m ag was 1.9. k is 4.1 El Reed MD Cardiology: C heck echo for LVH and PVCs. C heck tele 24 hr PVCs T readmill stress test, abnormal EKG Nuclear regadenoson was normal, no ischemia, EF 55%. El Reed MD Cardiology: V accinated x3. Never had COVID. El Reed MD Cardiology: H is updated medication list for this problem includes: Toprol Xl 25 Mg Tablet Extended Release 24 Hr (Metoprolol succinate) ..... Take 1 tablet by mouth once a day Amlodipine 10 Mg Tablet (Amlodipine) El Reed MD Cardiology: C ONCLUSIONS: 1 . Normal left ventricular systolic function. Normal left ventricular size. Normal left ventricular wall thickness. There is E to A w ave reversal consistent with impaired LV relaxation. E/E': 5.1 Left ventricular ejection fraction is measured at 55 %. 2 . Normal right ventricular size. Normal right ventricular systolic function. 3 . Thin and hypermobile atrial septum. 4 . No significant valvular abnormalities. E lectronically signed by El Reed MD on 02/19/2022 at 8:04 AM. C ONCLUSIONS: 1 . Sinus bradycardia. Poor R wave progression. Non-specific T wave abnormality Old anterior wall myocardial infarction. 2 . Normal walking Regadenoson ECG with no ischemic ST or T changes. Threre is no ECG evidence of myocardial ischemia w ith vasodilator stress and simultaneous low-level exercise. 3 . Occasional PVCs seen during stress portion of the exam. 4 . Normal left ventricle size. 5 . Left Ventricular Ejection Fraction is 55 % TID: 1.19. 6 . Normal myocardial perfusion imaging with no evidence of ischemia or scar. November 20, 2022 C heck tele El Reed MD Cardiology:ALLERGIC REACTION TO LISINOPRIL H is updated medication list for this problem includes: Metformin 500 Mg Tablet (Metformin) ..... By mouth twice a day El Reed MD Cardiology:Check tele on Toprol XL 25mg El Reed MD Cardiology: T readmill stress test was normal with multiple PVCs. Bigeminy and NSVT. He will be getting a regadenosine stress. Telemtry monitor also demonstrated frequent PVCs. ADD TOPROL XL 25 November 20, 2022 C heck tele El Reed MD Cardiology:HAD REACT ION TO LISINOPRIL, ANGIOEDEMA. H is updated medication list for this problem includes: Toprol Xl 25 Mg Tablet Extended Release 24 Hr (Metoprolol succinate) ..... Take 1 tablet daily Amlodipine 10 Mg Tablet (Amlodipine) El Reed MD Cardiology: H is updated medication list for this problem includes: Atorvastatin 20 Mg Tablet (Atorvastatin) El Reed MD Cardiology: H is updated medication list for this problem includes: Metformin 500 Mg Tablet (Metformin) ..... By mouth twice a day El Reed MD Cardiology: C ONCLUSIONS: 1 . Normal left ventricular systolic function. Normal left ventricular size. Normal left ventricular wall thickness. There is E to A w ave reversal consistent with impaired LV relaxation. E/E': 5.1 Left ventricular ejection fraction is measured at 55 %. 2 . Normal right ventricular size. Normal right ventricular systolic function. 3 . Thin and hypermobile atrial septum. 4 . No significant valvular abnormalities. E lectronically signed by El Reed MD on 02/19/2022 at 8:04 AM. C ONCLUSIONS: 1 . Sinus bradycardia. Poor R wave progression. Non-specific T wave abnormality Old anterior wall myocardial infarction. 2 . Normal walking Regadenoson ECG with no ischemic ST or T changes. Threre is no ECG evidence of myocardial ischemia w ith vasodilator stress and simultaneous low-level exercise. 3 . Occasional PVCs seen during stress portion of the exam. 4 . Normal left ventricle size. 5 . Left Ventricular Ejection Fraction is 55 % TID: 1.19. 6 . Normal myocardial perfusion imaging with no evidence of ischemia or scar. El Reed MD Cardiology: V accinated x3. Never had COVID. El Reed MD Cardiology: T readmill stress test was normal with multiple PVCs. Bigeminy and NSVT. He will be getting a regadenosine stress. Telemtry monitor also demonstrated frequent PVCs. ADD TOPROL XL 25 El Reed MD Cardiology: C heck echo for LVH and PVCs. C heck tele 24 hr PVCs T readmill stress test, abnormal EKG Nuclear regadenoson was normal, no ischemia, EF 55%. El Reed MD Cardiology: H is updated medication list for this problem includes: Atorvastatin 20 Mg Tablet (Atorvastatin) February 25, 2022 L ipid panel looked good. 01/14/22 El Reed MD Cardiology:Treadmill stress test was normal with multiple PVCs. Bigeminy and NSVT. He will be getting a regadenosine stress. Telemtry monitor also demonstrated frequent PVCs. ADD TOPROL XL 25 El Reed MD Cardiology:CONCLUSIO NS: 1 . Normal left ventricular systolic function. Normal left ventricular size. Normal left ventricular wall thickness. There is E to A w ave reversal consistent with impaired LV relaxation. E/E': 5.1 Left ventricular ejection fraction is measured at 55 %. 2 . Normal right ventricular size. Normal right ventricular systolic function. 3 . Thin and hypermobile atrial septum. 4 . No significant valvular abnormalities. E lectronically signed by El Reed MD on 02/19/2022 at 8:04 AM. El Reed MD Cardiology:CHeck stress and tele monitor. El Reed MD Cardiology:Check ech o for LVH and PVCs. C heck tele 24 hr PVCs T readmill stress test, abnormal EKG El Reed MD Cardiology:A1c 5.9 H is updated medication list for this problem includes: Metformin 500 Mg Tablet (Metformin) ..... By mouth twice a day El Reed MD Cardiology:Lipid barrow el was well controlled on labs 01/30 H is updated medication list for this problem includes: Atorvastatin 20 Mg Tablet (Atorvastatin) El Reed MD Cardiology:Vaccinated x3. Never had COVID. El Reed MD Cardiology: B P today: 154/73 His updated medication list for this problem includes: Amlodipine 10 Mg Tablet (Amlodipine) El Reed MD Date Name EKG Echo with Bubbles HEMOGLOBIN A1c LIPID PANEL COMPREHENSIVE METABO LIC PANEL, W/EGFR Monitor - Telemetry (Mobile Cardiac) MAGNESIUM MAGNESIUM COMPREHENSIVE METABO LIC PANEL, W/EGFR MAGNESIUM COMPREHENSIVE METABO LIC PANEL, W/EGFR Holter Monitor 48 hr EKG Stress Regadenoson Stress Routine Holter Monitor 24 Hr Complete Echo HISTORY OF PROCEDURES Procedure Date Procedure Name Provider Procedure Notes S tatus Complex e/m visit add on El Reed MD completed EKG El Reed MD compl eted EKG El Reed MD compl eted EKG El Reed MD compl eted EKG El Reed MD compl eted EKG El Reed MD compl eted
--- OUTSIDE RECORDS SUMMARY | 2024-12-21 14:39 | XMS_ITS | Data Portability ---
Author Organization [facility] [employer], Main Office Address [address] [place] [address] Care Team Providers Care Security Strategist Name Role Phone RAFAEL ONEAL Primary Care Provider RAFAEL ONEAL Referring Provider URBANO KHAN Brick Machine Operator [phone] Assessment Encounter Date Assessment Date Assessment LastModified by Organization Details LastModified Time 07/29/2023 07/29/2023 01/14/2022: Lipids: WNL CMP: Gluc 111 CBC: WBC 3.6L PSA 0.62 12/29/2022: A1C 6.5 Urine micro alb 61.0 TSH/FT4: WNL LDL 93 02/01/2023: Dr Juan CBC: H/H 13.5/41.3 CMP: Gluc 101 07/01/2023: A1C 5.8 PSA 0.75 Gluc 145 WBC 3.4L Not available 07/29/2023 09:50:44 12/28/2023 12/28/2023 01/14/2022: Lipids: WNL CMP: Gluc 111 CBC: WBC 3.6L PSA 0.62 12/29/2022: A1C 6.5 Urine micro alb 61.0 TSH/FT4: WNL LDL 93 02/01/2023: Dr Juan CBC: H/H 13.5/41.3 CMP: Gluc 101 07/01/2023: A1C 5.8 PSA 0.75 Gluc 145 WBC 3.4L 10/29/2023: Dr Juan CMP: WNL Iron 204H 12/23/2023: B12/folate: WNL WBC 4.0 12/24/2023: A1C 5.5 Urine micro alb 27.7 WBC 3.5L Not available 12/28/2023 10:20:26 07/25/2024 07/25/2024 01/14/2022: Lipids: WNL CMP: Gluc 111 CBC: WBC 3.6L PSA 0.62 12/29/2022: A1C 6.5 Urine micro alb 61.0 TSH/FT4: WNL LDL 93 02/01/2023: Dr Juan CBC: H/H 13.5/41.3 CMP: Gluc 101 07/01/2023: A1C 5.8 PSA 0.75 Gluc 145 WBC 3.4L 10/29/2023: Dr Juan CMP: WNL Iron 204H 12/23/2023: B12/folate: WNL WBC 4.0 12/24/2023: A1C 5.5 Urine micro alb 27.7 WBC 3.5L 07/17/2024: A1C 5.7 PSA 0.95 WBC 3.9L ALP 127 Not available 07/25/2024 10:06:56 11/14/2024 11/14/2024 01/14/2022: Lipids: WNL CMP: Gluc 111 CBC: WBC 3.6L PSA 0.62 12/29/2022: A1C 6.5 Urine micro alb 61.0 TSH/FT4: WNL LDL 93 02/01/2023: Dr Juan CBC: H/H 13.5/41.3 CMP: Gluc 101 07/01/2023: A1C 5.8 PSA 0.75 Gluc 145 WBC 3.4L 10/29/2023: Dr Juan CMP: WNL Iron 204H 12/23/2023: B12/folate: WNL WBC 4.0 12/24/2023: A1C 5.5 Urine micro alb 27.7 WBC 3.5L 07/17/2024: A1C 5.7 PSA 0.95 WBC 3.9L ALP 127 Not available 11/12/2024 16:29:28 Plan of Treatment Reminders Order Date Submit Date Provider Last Modified By Organization Details Last Modified Time Details Appointments Follow Up 2024 09:00A M Urbano Khan DPM Not available Not available Not available Any 15 2024 08:45A M Rafael parmar MD Not available Not available Not available Lab alkaline phosphata se isoenzyme s, serum or plasma 2024 025 [facility] (Lab), [address] [place], [address], 11/14/2024 16:10:43 CBC w/ auto diff 2024 025 [facility] (Lab), [address] [place], [address], 11/14/2024 16:10:43 CMP, serum or plasma 2024 025 [facility] (Lab), [address] [place], [address], 11/14/2024 16:10:43 glycohemo globin, total, blood 2024 025 [facility] (Lab), [address] [place], [address], 11/14/2024 16:10:43 microalbu min, urine 2024 025 [facility] (Lab), [address] [place], [address], 11/14/2024 16:10:43 lipid panel, serum 2024 025 [facility] (Lab), [address] [place], [address], 11/14/2024 16:10:43 TSH, serum or plasma 2024 025 [facility] (Lab), [address] [place], [address], 11/14/2024 16:10:43 alkaline phosphata se isoenzyme s, serum or plasma [address] (Lab), [address] [place], [address], 08/01/2024 17:03:16 glycohemo globin, total, blood [address] (Lab), [address] [place], [address], 07/25/2024 10:15:16 microalbu min, urine [address] (Lab), [address] [place], [address], 07/25/2024 10:15:17 lipid panel, serum [address] (Lab), [address] [place], [address], 07/25/2024 10:15:16 TSH, serum or plasma [address] (Lab), [address] [place], [address], 07/25/2024 10:15:16 glycohemo globin, total, blood 2023 024 [facility] (Lab), [address] [place], [address], 07/28/2024 11:46:38 microalbu min, urine [address] (Lab), [address] [place], [address], 06/26/2024 10:39:44 lipid panel, serum [address] (Lab), [address] [place], [address], 06/26/2024 10:39:43 TSH, serum or plasma 2023 024 [facility] (Lab), [address] [place], [address], 07/17/2024 11:39:54 glycohemo globin, total, blood [address] (Lab), [address] [place], [address], 01/25/2024 08:27:48 microalbu min, urine [address] (Lab), [address] [place], [address], 01/25/2024 08:27:48 CBC w/ auto diff 2022 023 [facility] (Lab), [address] [place], [address], 10/29/2023 12:28:42 CMP, serum or plasma 2022 023 [facility] (Lab), [address] [place], [address], 10/29/2023 15:48:27 lipid panel, serum [address] (Lab), [address] [place], [address], 01/25/2024 08:27:47 TSH, serum or plasma [address] (Lab), [address] [place], [address], 01/25/2024 08:27:47 Referral nephrolog ist referral - Please call patient to schedule an appointme nt. Thank you. 2024 025 ISMAEL Morrison MD (Nephrology, [address], [address], [place], [address], 12/04/2024 15:40:39 podiatris t referral - Please call patient to schedule. 2024 025 [email or web address] Refugio South DPM, [address], [place], [address], 11/28/2024 17:03:14 hematolog ist referral - Please call patient to schedule an appointme nt. Thank you. 2024 025 [email or web address] Mello Juan MD, [address], [place], [address], 12/04/2024 15:01:51 nephrolog ist referral - Please call patient to schedule. 2023 024 [email or web address] Umair Morrison MD (Nephrology, [address], [address], [place], [address], 11/21/2024 12:32:37 podiatris t referral - Please call patient to schedule. 2023 024 Refugio South DPM, [address], [place], [address], 09/28/2024 19:27:12 cardiolog ist referral 2023 024 El Reed MD, [address], [address], [place], [address], 07/25/2024 10:36:53 hematolog ist referral 2023 024 [email or web address] Mello Juan MD, [address], [place], [address], 07/25/2024 10:36:54 nephrolog ist referral 2023 024 [email or web address] Umair Morrison MD (Nephrology, [address], [address], [place], [address], 10/10/2024 15:24:00 podiatris t referral 2023 024 ary South DPM, [address], [place], [address], 06/26/2024 08:43:51 cardiolog ist referral 2023 024 ary Reed MD, [address], [address], [place], [address], 06/26/2024 08:44:22 nephrolog ist referral 2022 023 ary Morrison MD (Nephrology, [address], [address], [place], [address], 04/26/2024 08:13:57 podiatris t referral 2022 023 ary South DPM, [address], [place], [address], 07/24/2024 08:41:25 cardiolog ist referral 2022 023 ary Reed MD, [address], [address], [place], [address], 04/26/2024 08:13:58 hematolog ist referral 2022 023 ary Juan MD, [address], [place], [address], 07/24/2024 08:41:26 Procedures None recorded. Surgeries None recorded. Imaging US, liver - Please call patient to schedule. 2023 024 [facility] (Radiology), [address] [facility], [place], [address], 08/24/2024 10:17:13 Medication Orders None recorded. Patient TargetsNo targets recorded. Patient Instructions Encounter Date Encounter Id Patient Instructions Last Modified By Organization Details Last Modified Time 07/29/2023 [id number] dementia rating scale-2* [email or web address] 2 Not available 07/29/2023 12:03:30 alcohol misuse* [email or web address] 2 Not available 07/29/2023 12:03:30 depression screening* [email or web address] 2 Not available 07/29/2023 12:03:30 multi-dimensiona l health assessment questionnaire* [email or web address] 2 Not available 07/29/2023 12:03:30 Personalized a lt Plan and Screening Recommendations Advance Directives - Do you have one? No Advance Directives - Do we have your advance directive on file in your health record? Primary Prevention/Interven tion (prevents or decreases the chance of common diseases from occurring) Smoking Risk: Non Smoker Alcohol Misuse Screening: Negative Weight: Appropriate Physical activity: Need more exercise/physical activity Nutrition: Good Average Fall Risk (screened today): Low Vaccines Pneumococcal: Ordered Recommended today Recommended today, but you have declined No further needed Influenza: Chronic Disease Risks Stroke: Low Risk Intermediate Risk I have no recommendations Act francisco javier diagnosis, Continue current treatment plan Heart Attack: Low risk Intermediate Risk I have no recommendations Act francisco javier diagnosis, Continue current treatment plan Clogging of the Arteries: Low risk Intermediate Risk I have no recommendations Act francisco javier diagnosis, Continue current treatment plan Diabetes: Low Risk Intermediate Risk Active diagnosis, Continue current treatment plan Secondary Prevention/Interven tion (detects treatable diseases before they may cause symptoms, disability, or ) Prostate Cancer Screening: Colon Cancer Screening: Colonoscopy Date Screening Last Performed: __2021_ Eye Disease Screening: Ordered Recommended today Dementia Risk: Low I have no recommendations Depression Screening: Negative [email or web address] Not available 07/29/2023 10:00:52 Reason for Referral Brick Machine Operator Referral for Type 2 diabetes mellitus without complication Referring Physician: Rafael Oneal, Internal Medicine, Encounter Date: 07/29/2023 Chicken Raiser Referral for Pr oteinuria Referring Physician: Rebecca Macario, Encounter Date: 07/29/2023 Referring Physician: Rafael Oneal Internal Medicine, Encounter Date: 07/29/2023 Special Technical Operations Officer Referral for Es sential hypertension Referring Physician: Rafael Oneal Internal Medicine, Encounter Date: 07/29/2023 Brick Machine Operator Referral for Type 2 diabetes mellitus without complication Referring Physician: Rafael Oneal Internal Medicine, Encounter Date: 12/28/2023 Chicken Raiser Referral for Pr oteinuria Referring Physician: Rebecca Macario, Encounter Date: 12/28/2023 Special Technical Operations Officer Referral for Es sential hypertension Referring Physician: Rebecca Macario, Encounter Date: 12/28/2023 Brick Machine Operator Referral for Type 2 diabetes mellitus without complication Please call patient to schedule. Referring Physician: Rebecca Macario, Encounter Date: 07/25/2024 Chicken Raiser Referral for Pr oteinuria Please call patient to schedule. Referring Physician: Rebecca Macario, Encounter Date: 07/25/2024 Special Technical Operations Officer Referral for Es sential hypertension Referring Physician: Rebecca Macario, Encounter Date: 07/25/2024 Referring Physician: Rebecca Macario, Encounter Date: 07/25/2024 Brick Machine Operator Referral for Type 2 diabetes mellitus without complication Please call patient to schedule. Referring Physician: Rebecca Macario, Encounter Date: 11/14/2024 Chicken Raiser Referral for Pr oteinuria Please call patient to schedule an appointment. Thank you. Referring Physician: Rebecca Macario, Encounter Date: 11/14/2024 [facility]. Thank you. Referring Physician: Rafael Oneal, Internal Medicine, Encounter Date: 11/14/2024 Results Created Date Observation Date Name Description Value Unit Range Abnormal Flag Note LastModifiedBy Organization Detail LastModifiedTime 07/01/20 23 07/01/2023 CBC/C OMPLE TE BLD COUNT W/DIF F white blood cells 3.4 x10'3 /uL 4.2-10 .8 low Not Available [facility] (Lab) [address] [place], [address], 07/01/2023 11:19:14 07/01/20 23 07/01/2023 CBC/C OMPLE TE BLD COUNT W/DIF F red blood cells 4.69 x10'6 /uL 4.10-5 .80 Not Available [facility] (Lab) [address] [place], [address], 07/01/2023 11:19:14 07/01/20 23 07/01/2023 CBC/C OMPLE TE BLD COUNT W/DIF F hemoglobin 13.6 g/dL 13.2-1 7.0 Not Available [facility] (Lab) [address] [place], [address], 07/01/2023 11:19:14 07/01/20 23 07/01/2023 CBC/C OMPLE TE BLD COUNT W/DIF F hematocrit 42.3 % 39.3-5 0.0 Not Available [facility] (Lab) [address] [place], [address], 07/01/2023 11:19:14 07/01/20 23 07/01/2023 CBC/C OMPLE TE BLD COUNT W/DIF F mean red cell volume 90.2 fL 80.0-9 7.0 Not Available [facility] (Lab) [address] [place], [address], 07/01/2023 11:19:14 07/01/20 23 07/01/2023 CBC/C OMPLE TE BLD COUNT W/DIF F mean red cell hemoglobin 29.0 pg 27.0-3 3.0 Not Available [facility] (Lab) [address] [place], [address], 07/01/2023 11:19:14 07/01/20 23 07/01/2023 CBC/C OMPLE TE BLD COUNT W/DIF F mean RBC HGB concentratio n 32.2 g/dL 31.0-3 6.0 Not Available [facility] (Lab) [address] [place], [address], 07/01/2023 11:19:14 07/01/20 23 07/01/2023 CBC/C OMPLE TE BLD COUNT W/DIF F red cell distribution width 13.4 % 11.8-1 5.5 Not Available [facility] (Lab) [address] [place], [address], 07/01/2023 11:19:14 07/01/20 23 07/01/2023 CBC/C OMPLE TE BLD COUNT W/DIF F platelets 272 x10'3 /uL 150-40 0 Not Available [facility] (Lab) [address] [place], [address], 07/01/2023 11:19:14 07/01/20 23 07/01/2023 CBC/C OMPLE TE BLD COUNT W/DIF F mean platelet volume 10.3 fL 9.0-12 .4 Not Available [facility] (Lab) [address] [place], [address], 07/01/2023 11:19:14 07/01/20 23 07/01/2023 CBC/C OMPLE TE BLD COUNT W/DIF F neutrophils 37.4 % 39.0-7 2.0 low Not Available [facility] (Lab) [address] [place], [address], 07/01/2023 11:19:14 07/01/20 23 07/01/2023 CBC/C OMPLE TE BLD COUNT W/DIF F lymphocytes 52.2 % 16.0-4 7.0 high Not Available [facility] (Lab) [address] [place], [address], 07/01/2023 11:19:14 07/01/20 23 07/01/2023 CBC/C OMPLE TE BLD COUNT W/DIF F monocytes 8.0 % 5.0-12 .0 Not Available [facility] (Lab) [address] [place], [address], 07/01/2023 11:19:14 07/01/20 23 07/01/2023 CBC/C OMPLE TE BLD COUNT W/DIF F eosinophils 1.8 % 1.0-7. 0 Not Available [facility] (Lab) [address] [place], [address], 07/01/2023 11:19:14 07/01/20 23 07/01/2023 CBC/C OMPLE TE BLD COUNT W/DIF F basophils 0.3 % 0.0-2. 0 Not Available [facility] (Lab) [address] [place], [address], 07/01/2023 11:19:14 07/01/20 23 07/01/2023 CBC/C OMPLE TE BLD COUNT W/DIF F immature granulocytes 0.3 % 0.00-0 .50 Not Available [facility] (Lab) [address] [place], [address], 07/01/2023 11:19:14 07/01/20 23 07/01/2023 CBC/C OMPLE TE BLD COUNT W/DIF F neutrophils, absolute count 1.27 x10'3 /uL 1.5-8. 0 low Not Available [facility] (Lab) [address] [place], [address], 07/01/2023 11:19:14 07/01/20 23 07/01/2023 CBC/C OMPLE TE BLD COUNT W/DIF F lymphocytes, absolute count 1.77 x10'3 /uL 1.07-3 .43 Not Available [facility] (Lab) [address] [place], [address], 07/01/2023 11:19:14 07/01/20 23 07/01/2023 CBC/C OMPLE TE BLD COUNT W/DIF F monocytes, absolute count 0.27 x10'3 /uL 0.29-0 .99 low Not Available [facility] (Lab) [address] [place], [address], 07/01/2023 11:19:14 07/01/20 23 07/01/2023 CBC/C OMPLE TE BLD COUNT W/DIF F eosinophils, absolute count 0.06 x10'3 /uL 0.02-0 .53 Not Available [facility] (Lab) [address] [place], [address], 07/01/2023 11:19:14 07/01/20 23 07/01/2023 CBC/C OMPLE TE BLD COUNT W/DIF F basophils, absolute count 0.01 x10'3 /uL 0.01-0 .08 Not Available [facility] (Lab) [address] [place], [address], 07/01/2023 11:19:14 07/01/20 23 07/01/2023 CBC/C OMPLE TE BLD COUNT W/DIF F immature granulocytes ,absolute 0.01 x10'3 /uL 0.00-0 .05 Not Available [facility] (Lab) [address] [place], [address], 07/01/2023 11:19:14 07/01/20 23 07/01/2023 CBC/C OMPLE TE BLD COUNT W/DIF F nucleated red blood cells 0.0 % -0 Not Available [facility] (Lab) [address] [place], [address], 07/01/2023 11:19:14 07/01/20 23 07/01/2023 CBC/C OMPLE TE BLD COUNT W/DIF F NRBC# 0.00 x10'3 /uL Not Available [facility] (Lab) [address] [place], [address], 07/01/2023 11:19:14 07/01/20 23 07/01/2023 COMPR EHENS FRANCISCO JAVIER METAB OLIC PANEL sodium 139 mmol/ L 137-14 5 Not Available [facility] (Lab) [address] [place], [address], 07/01/2023 11:37:07 07/01/20 23 07/01/2023 COMPR EHENS FRANCISCO JAVIER METAB OLIC PANEL potassium 4.1 mmol/ L 3.5-5. 1 Not Available [facility] (Lab) [address] [place], [address], 07/01/2023 11:37:07 07/01/20 23 07/01/2023 COMPR EHENS FRANCISCO JAVIER METAB OLIC PANEL chloride 100 mmol/ L 98-107 Not Available [facility] (Lab) [address] [place], [address], 07/01/2023 11:37:07 07/01/20 23 07/01/2023 COMPR EHENS FRANCISCO JAVIER METAB OLIC PANEL carbon dioxide 31 mmol/ L 22-30 high Not Available [facility] (Lab) [address] [place], [address], 07/01/2023 11:37:07 07/01/20 23 07/01/2023 COMPR EHENS FRANCISCO JAVIER METAB OLIC PANEL anion gap 12.1 mmol/ L 14-22 low Not Available [facility] (Lab) [address] [place], [address], 07/01/2023 11:37:07 07/01/20 23 07/01/2023 COMPR EHENS FRANCISCO JAVIER METAB OLIC PANEL glucose 145 mg/dL 70-99 high Not Available [facility] (Lab) [address] [place], [address], 07/01/2023 11:37:07 07/01/20 23 07/01/2023 COMPR EHENS FRANCISCO JAVIER METAB OLIC PANEL BUN 13 mg/dL 8-19 Not Available [facility] (Lab) [address] [place], [address], 07/01/2023 11:37:07 07/01/20 23 07/01/2023 COMPR EHENS FRANCISCO JAVIER METAB OLIC PANEL creatinine 0.81 mg/dL 0.66-1 .25 Not Available [facility] (Lab) [address] [place], [address], 07/01/2023 11:37:07 07/01/20 23 07/01/2023 COMPR EHENS FRANCISCO JAVIER METAB OLIC PANEL GFR >60 Refer ence Range : [place] ge GFR Healt hy Adult : >60 mL/mi n/1.7 3 m2 Chron ic Kidne y Disea se: 15-60 mL/mi n/1.7 3 m2 Kidne y Failu re: <15/m L/min /1.73 m2 www.n iddk. nih.g ov The MDRD study equat ion has not been valid ated in child helen <18 years of age; pregn ant women ; the elder ly >85 years of age; or in some racia l or ethni c subgr oups, such as Hispa nics. Outsi de the valid ated karri eters , estim ated GFR is less accur ate, requi ring clini manuel judgm ent on a case- by-ca se basis . Clini manuel inter preta tion for other races and ages must be made by the clini ander. The MDRD study equat ion has not been valid ated for the evalu ation of serum creat inine relat ed to nutri esther l statu s or medic ation usage . For perso ns <18 years of age, a pedia tric GFR calcu lator is avail able on the [facility] websi te: https ://rodney arriaga.o jalen/pr ofess ional s/kdo qi/gf r_cal culat or Not Available [facility] (Lab) [address] [place], [address], 07/01/2023 11:37:07 07/01/20 23 07/01/2023 COMPR EHENS FRANCISCO JAVIER METAB OLIC PANEL alkaline phosphatase 93 U/L 38-126 Not Available [facility] (Lab) [address] [place], [address], 07/01/2023 11:37:07 07/01/20 23 07/01/2023 COMPR EHENS FRANCISCO JAVIER METAB OLIC PANEL alanine aminotransfe rase 25 U/L 0-50 Not Available [facility] (Lab) [address] [place], [address], 07/01/2023 11:37:07 07/01/20 23 07/01/2023 COMPR EHENS FRANCISCO JAVIER METAB OLIC PANEL aspartate aminotransfe rase 28 U/L 15-46 Not Available [facility] (Lab) [address] [place], [address], 07/01/2023 11:37:07 07/01/20 23 07/01/2023 COMPR EHENS FRANCISCO JAVIER METAB OLIC PANEL bilirubin, total 0.80 mg/dL 0.20-1 .30 Not Available [facility] (Lab) [address] [place], [address], 07/01/2023 11:37:07 07/01/20 23 07/01/2023 COMPR EHENS FRANCISCO JAVIER METAB OLIC PANEL calcium 9.4 mg/dL 8.4-10 .2 Not Available [facility] (Lab) [address] [place], [address], 07/01/2023 11:37:07 07/01/20 23 07/01/2023 COMPR EHENS FRANCISCO JAVIER METAB OLIC PANEL total protein 7.5 g/dL 6.3-8. 2 Not Available [facility] (Lab) [address] [place], [address], 07/01/2023 11:37:07 07/01/20 23 07/01/2023 COMPR EHENS FRANCISCO JAVIER METAB OLIC PANEL albumin 4.3 g/dL 3.0-4. 4 Not Available [facility] (Lab) [address] [place], [address], 07/01/2023 11:37:07 07/01/20 23 07/01/2023 COMPR EHENS FRANCISCO JAVIER METAB OLIC PANEL globulin 3.2 g/dL 2.6-4. 2 Not Available [facility] (Lab) [address] [place], [address], 07/01/2023 11:37:07 07/01/20 23 07/01/2023 COMPR EHENS FRANCISCO JAVIER METAB OLIC PANEL A/G ratio 1.3 ratio 1.0-2. 0 Not Available [facility] (Lab) [address] [place], [address], 07/01/2023 11:37:07 07/01/20 23 07/01/2023 LIPID PANEL cholesterol 179 mg/dL 140-19 9 NIH TREVOR NSUS RECOM MENDA TION FOR MELQUIADES STERO L: ADULT CHILD LOW RISK: <200 <170 BORDE RLINE : <200- 239 ----- HIGH RISK: >240 >200 Not Available [facility] (Lab) [address] [place], [address], 07/01/2023 11:37:10 07/01/20 23 07/01/2023 LIPID PANEL triglyceride s 50 mg/dL 0-150 NIH TREVOR NSUS REPOR T RECOM MENDA TION FOR TRIGL YCERI МАРИЯ: ADULT CHILD LOW RISK: <150 ----- BODER LINE: 150-1 99 ----- HIGH RISK: >200 ----- Not Available [facility] (Lab) [address] [place], [address], 07/01/2023 11:37:10 07/01/20 23 07/01/2023 LIPID PANEL HDL cholesterol 83 mg/dL 40- Not Available [facility] (Lab) [address] [place], [address], 07/01/2023 11:37:10 07/01/20 23 07/01/2023 LIPID PANEL LDL cholesterol, calculated 86 mg/dL 0-130 NIH TREVOR NSUS REPOR T RECOM MENDA TIONS FOR LDL: ADULT CHILD LOW RISK <130 <110 (OPTI MAL LDL) <100 ----- BORDE RLINE : 130-1 59 ----- HIGH RISK: >160 >130 A TRIGL YCERI DE RESUL T >400 INVAL IDATE S THE CALCU LATIO N FOR LDL FRACT IONAT ION - THE LDL RESUL T WILL NOT BE REPOR ADAM. Not Available [facility] (Lab) [address] [place], [address], 07/01/2023 11:37:10 07/01/20 23 07/01/2023 MICRO ALBUM IN RANDO M URINE microalbumin , urine 14.3 mg/L 0.0-16 .6 Not Available [facility] (Lab) [address] [place], [address], 07/01/2023 11:44:32 07/01/20 23 07/01/2023 TSH W/REF ESAU FT4 TSH with reflex free T4 0.726 uIU/m L 0.465- 4.680 Not Available [facility] (Lab) [address] [place], [address], 07/01/2023 11:57:16 07/01/20 23 07/01/2023 PSA SCREE N PSA medicare screen 0.75 NG/mL 0.00-4 .00 Not Available [facility] (Lab) [address] [place], [address], 07/01/2023 11:57:21 07/01/20 23 07/01/2023 HEMOG LOBIN A1C HA1C 5.8 % 4.0-6. 0 Diabe ion Scree colt Crite itz: <5.7% Consi stent with absen ce of diabe ion 5.7-6 .4% Consi stent with incre ased risk for diabe ion (pred iabet es) >OR=6 .5% Consi stent with diabe ion REFER ENCE: Diabe ion Care 2016, 39(Ratliff ppl.1 ):s13 -s22 Not Available [facility] (Lab) [address] [place], [address], 07/01/2023 12:55:36 12/24/19 24 12/24/2023 CBC/C OMPLE TE BLD COUNT W/DIF F white blood cells 3.5 x10'3 /uL 4.2-10 .8 low Not Available [facility] (Lab) [address] [place], [address], 12/24/2023 10:09:51 12/24/19 24 12/24/2023 CBC/C OMPLE TE BLD COUNT W/DIF F red blood cells 4.71 x10'6 /uL 4.10-5 .80 Not Available [facility] (Lab) [address] [place], [address], 12/24/2023 10:09:51 12/24/19 24 12/24/2023 CBC/C OMPLE TE BLD COUNT W/DIF F hemoglobin 14.0 g/dL 13.2-1 7.0 Not Available [facility] (Lab) [address] [place], [address], 12/24/2023 10:09:51 12/24/19 24 12/24/2023 CBC/C OMPLE TE BLD COUNT W/DIF F hematocrit 42.6 % 39.3-5 0.0 Not Available [facility] (Lab) [address] [place], [address], 12/24/2023 10:09:51 12/24/19 24 12/24/2023 CBC/C OMPLE TE BLD COUNT W/DIF F mean red cell volume 90.4 fL 80.0-9 7.0 Not Available [facility] (Lab) [address] [place], [address], 12/24/2023 10:09:51 12/24/19 24 12/24/2023 CBC/C OMPLE TE BLD COUNT W/DIF F mean red cell hemoglobin 29.7 pg 27.0-3 3.0 Not Available [facility] (Lab) [address] [place], [address], 12/24/2023 10:09:51 12/24/19 24 12/24/2023 CBC/C OMPLE TE BLD COUNT W/DIF F mean RBC HGB concentratio n 32.9 g/dL 31.0-3 6.0 Not Available [facility] (Lab) [address] [place], [address], 12/24/2023 10:09:51 12/24/19 24 12/24/2023 CBC/C OMPLE TE BLD COUNT W/DIF F red cell distribution width 13.4 % 11.8-1 5.5 Not Available [facility] (Lab) [address] [place], [address], 12/24/2023 10:09:51 12/24/19 24 12/24/2023 CBC/C OMPLE TE BLD COUNT W/DIF F platelets 271 x10'3 /uL 150-40 0 Not Available [facility] (Lab) [address] [place], [address], 12/24/2023 10:09:51 12/24/19 24 12/24/2023 CBC/C OMPLE TE BLD COUNT W/DIF F mean platelet volume 10.1 fL 9.0-12 .4 Not Available [facility] (Lab) [address] [place], [address], 12/24/2023 10:09:51 12/24/19 24 12/24/2023 CBC/C OMPLE TE BLD COUNT W/DIF F neutrophils 40.7 % 39.0-7 2.0 Not Available [facility] (Lab) [address] [place], [address], 12/24/2023 10:09:51 12/24/19 24 12/24/2023 CBC/C OMPLE TE BLD COUNT W/DIF F lymphocytes 42.5 % 16.0-4 7.0 Not Available [facility] (Lab) [address] [place], [address], 12/24/2023 10:09:51 12/24/19 24 12/24/2023 CBC/C OMPLE TE BLD COUNT W/DIF F monocytes 14.2 % 5.0-12 .0 high Not Available [facility] (Lab) [address] [place], [address], 12/24/2023 10:09:51 12/24/19 24 12/24/2023 CBC/C OMPLE TE BLD COUNT W/DIF F eosinophils 1.4 % 1.0-7. 0 Not Available [facility] (Lab) [address] [place], [address], 12/24/2023 10:09:51 12/24/19 24 12/24/2023 CBC/C OMPLE TE BLD COUNT W/DIF F basophils 0.6 % 0.0-2. 0 Not Available [facility] (Lab) [address] [place], [address], 12/24/2023 10:09:51 12/24/19 24 12/24/2023 CBC/C OMPLE TE BLD COUNT W/DIF F immature granulocytes 0.6 % 0.00-0 .50 high Not Available [facility] (Lab) [address] [place], [address], 12/24/2023 10:09:51 12/24/19 24 12/24/2023 CBC/C OMPLE TE BLD COUNT W/DIF F neutrophils, absolute count 1.43 x10'3 /uL 1.5-8. 0 low Not Available [facility] (Lab) [address] [place], [address], 12/24/2023 10:09:51 12/24/19 24 12/24/2023 CBC/C OMPLE TE BLD COUNT W/DIF F lymphocytes, absolute count 1.49 x10'3 /uL 1.07-3 .43 Not Available [facility] (Lab) [address] [place], [address], 12/24/2023 10:09:51 12/24/19 24 12/24/2023 CBC/C OMPLE TE BLD COUNT W/DIF F monocytes, absolute count 0.50 x10'3 /uL 0.29-0 .99 Not Available [facility] (Lab) [address] [place], [address], 12/24/2023 10:09:51 12/24/19 24 12/24/2023 CBC/C OMPLE TE BLD COUNT W/DIF F eosinophils, absolute count 0.05 x10'3 /uL 0.02-0 .53 Not Available [facility] (Lab) [address] [place], [address], 12/24/2023 10:09:51 12/24/19 24 12/24/2023 CBC/C OMPLE TE BLD COUNT W/DIF F basophils, absolute count 0.02 x10'3 /uL 0.01-0 .08 Not Available [facility] (Lab) [address] [place], [address], 12/24/2023 10:09:51 12/24/19 24 12/24/2023 CBC/C OMPLE TE BLD COUNT W/DIF F immature granulocytes ,absolute 0.02 x10'3 /uL 0.00-0 .05 Not Available [facility] (Lab) [address] [place], [address], 12/24/2023 10:09:51 12/24/19 24 12/24/2023 CBC/C OMPLE TE BLD COUNT W/DIF F nucleated red blood cells 0.0 % -0 Not Available [facility] (Lab) [address] [place], [address], 12/24/2023 10:09:51 12/24/19 24 12/24/2023 CBC/C OMPLE TE BLD COUNT W/DIF F NRBC# 0.00 x10'3 /uL Not Available [facility] (Lab) [address] [place], [address], 12/24/2023 10:09:51 12/24/19 24 12/24/2023 COMPR EHENS FRANCISCO JAVIER METAB OLIC PANEL sodium 139 mmol/ L 137-14 5 Not Available [facility] (Lab) [address] [place], [address], 12/24/2023 10:25:35 12/24/19 24 12/24/2023 COMPR EHENS FRANCISCO JAVIER METAB OLIC PANEL potassium 3.8 mmol/ L 3.5-5. 1 Not Available [facility] (Lab) [address] [place], [address], 12/24/2023 10:25:35 12/24/19 24 12/24/2023 COMPR EHENS FRANCISCO JAVIER METAB OLIC PANEL chloride 102 mmol/ L 98-107 Not Available [facility] (Lab) [address] [place], [address], 12/24/2023 10:25:35 12/24/19 24 12/24/2023 COMPR EHENS FRANCISCO JAVIER METAB OLIC PANEL carbon dioxide 33 mmol/ L 22-30 high Not Available [facility] (Lab) [address] [place], [address], 12/24/2023 10:25:35 12/24/19 24 12/24/2023 COMPR EHENS FRANCISCO JAVIER METAB OLIC PANEL anion gap 7.8 mmol/ L 14-22 low Not Available [facility] (Lab) [address] [place], [address], 12/24/2023 10:25:35 12/24/19 24 12/24/2023 COMPR EHENS FRANCISCO JAVIER METAB OLIC PANEL glucose 96 mg/dL 70-99 Not Available [facility] (Lab) [address] [place], [address], 12/24/2023 10:25:35 12/24/19 24 12/24/2023 COMPR EHENS FRANCISCO JAVIER METAB OLIC PANEL BUN 17 mg/dL 8-19 Not Available [facility] (Lab) [address] [place], [address], 12/24/2023 10:25:35 12/24/19 24 12/24/2023 COMPR EHENS FRANCISCO JAVIER METAB OLIC PANEL creatinine 0.81 mg/dL 0.66-1 .25 Not Available [facility] (Lab) [address] [place], [address], 12/24/2023 10:25:35 12/24/19 24 12/24/2023 COMPR EHENS FRANCISCO JAVIER METAB OLIC PANEL GFR >60 Refer ence Range : [place] ge GFR Healt hy Adult : >60 mL/mi n/1.7 3 m2 Chron ic Kidne y Disea se: 15-60 mL/mi n/1.7 3 m2 Kidne y Failu re: <15/m L/min /1.73 m2 www.n iddk. nih.g ov The MDRD study equat ion has not been valid ated in child helen <18 years of age; pregn ant women ; the elder ly >85 years of age; or in some racia l or ethni c subgr oups, such as Hispa nics. Outsi de the valid ated karri eters , estim ated GFR is less accur ate, requi ring clini manuel judgm ent on a case- by-ca se basis . Clini manuel inter preta tion for other races and ages must be made by the clini ander. The MDRD study equat ion has not been valid ated for the evalu ation of serum creat inine relat ed to nutri esther l statu s or medic ation usage . For perso ns <18 years of age, a pedia tric GFR calcu lator is avail able on the [facility] websi te: https :[email or web address] rg/pr ofess ional s/kdo qi/gf r_cal culat or Not Available [facility] (Lab) [address] [place], [address], 12/24/2023 10:25:35 12/24/19 24 12/24/2023 COMPR EHENS FRANCISCO JAVIER METAB OLIC PANEL alkaline phosphatase 99 U/L 38-126 Not Available [facility] (Lab) [address] [place], [address], 12/24/2023 10:25:35 12/24/19 24 12/24/2023 COMPR EHENS FRANCISCO JAVIER METAB OLIC PANEL alanine aminotransfe rase 22 U/L 0-50 Not Available [facility] (Lab) [address] [place], [address], 12/24/2023 10:25:35 12/24/19 24 12/24/2023 COMPR EHENS FRANCISCO JAVIER METAB OLIC PANEL aspartate aminotransfe rase 28 U/L 15-46 Not Available [facility] (Lab) [address] [place], [address], 12/24/2023 10:25:35 12/24/19 24 12/24/2023 COMPR EHENS FRANCISCO JAVIER METAB OLIC PANEL bilirubin, total 0.80 mg/dL 0.20-1 .30 Not Available [facility] (Lab) [address] [place], [address], 12/24/2023 10:25:35 12/24/19 24 12/24/2023 COMPR EHENS FRANCISCO JAVIER METAB OLIC PANEL calcium 9.7 mg/dL 8.4-10 .2 Not Available [facility] (Lab) [address] [place], [address], 12/24/2023 10:25:35 12/24/19 24 12/24/2023 COMPR EHENS FRANCISCO JAVIER METAB OLIC PANEL total protein 7.5 g/dL 6.3-8. 2 Not Available [facility] (Lab) [address] [place], [address], 12/24/2023 10:25:35 12/24/19 24 12/24/2023 COMPR EHENS FRANCISCO JAVIER METAB OLIC PANEL albumin 4.2 g/dL 3.0-4. 4 Not Available [facility] (Lab) [address] [place], [address], 12/24/2023 10:25:35 12/24/19 24 12/24/2023 COMPR EHENS FRANCISCO JAVIER METAB OLIC PANEL globulin 3.3 g/dL 2.6-4. 2 Not Available [facility] (Lab) [address] [place], [address], 12/24/2023 10:25:35 12/24/19 24 12/24/2023 COMPR EHENS FRANCISCO JAVIER METAB OLIC PANEL A/G ratio 1.3 ratio 1.0-2. 0 Not Available [facility] (Lab) [address] [place], [address], 12/24/2023 10:25:35 12/24/19 24 12/24/2023 LIPID PANEL cholesterol 169 mg/dL 140-19 9 NIH TREVOR NSUS RECOM MENDA TION FOR MELQUIADES STERO L: ADULT CHILD LOW RISK: <200 <170 BORDE RLINE : <200- 239 ----- HIGH RISK: >240 >200 Not Available [facility] (Lab) [address] [place], [address], 12/24/2023 10:25:39 12/24/19 24 12/24/2023 LIPID PANEL triglyceride s 45 mg/dL 0-150 NIH TREVOR NSUS REPOR T RECOM MENDA TION FOR TRIGL YCERI МАРИЯ: ADULT CHILD LOW RISK: <150 ----- BODER LINE: 150-1 99 ----- HIGH RISK: >200 ----- Not Available [facility] (Lab) [address] [place], [address], 12/24/2023 10:25:39 12/24/19 24 12/24/2023 LIPID PANEL HDL cholesterol 80 mg/dL 40- Not Available [facility] (Lab) [address] [place], [address], 12/24/2023 10:25:39 12/24/19 24 12/24/2023 LIPID PANEL LDL cholesterol, calculated 80 mg/dL 0-130 NIH TREVOR NSUS REPOR T RECOM MENDA TIONS FOR LDL: ADULT CHILD LOW RISK <130 <110 (OPTI MAL LDL) <100 ----- BORDE RLINE : 130-1 59 ----- HIGH RISK: >160 >130 A TRIGL YCERI DE RESUL T >400 INVAL IDATE S THE CALCU LATIO N FOR LDL FRACT IONAT ION - THE LDL RESUL T WILL NOT BE REPOR ADAM. Not Available [facility] (Lab) [address] [place], [address], 12/24/2023 10:25:39 12/24/19 24 12/24/2023 MICRO ALBUM IN RANDO M URINE microalbumin , urine 27.7 mg/L 0.0-16 .6 high Not Available [facility] (Lab) [address] [place], [address], 12/24/2023 11:13:47 12/24/19 24 12/24/2023 TSH W/REF ESAU FT4 TSH with reflex free T4 1.320 uIU/m L 0.465- 4.680 Not Available [facility] (Lab) [address] [place], [address], 12/24/2023 11:33:44 12/24/19 24 12/24/2023 HEMOG LOBIN A1C HA1C 5.5 % 4.0-6. 0 Diabe ion Scree colt Crite itz: <5.7% Consi stent with absen ce of diabe ion 5.7-6 .4% Consi stent with incre ased risk for diabe ion (pred iabet es) >OR=6 .5% Consi stent with diabe ion REFER ENCE: Diabe ion Care 2016, 39(Ratliff ppl.1 ):s13 -s22 Not Available [facility] (Lab) [address] [place], [address], 12/24/2023 13:50:40 07/17/2007/17/2024 COMPR EHENS FRANCISCO JAVIER METAB OLIC PANEL sodium 136 mmol/ L 137-14 5 low Not Available [facility] (Lab) [address] [place], [address], 07/17/2024 11:17:16 07/17/20 24 07/17/2024 COMPR EHENS FRANCISCO JAVIER METAB OLIC PANEL potassium 3.7 mmol/ L 3.5-5. 1 Not Available [facility] (Lab) [address] [place], [address], 07/17/2024 11:17:16 07/17/20 24 07/17/2024 COMPR EHENS FRANCISCO JAVIER METAB OLIC PANEL chloride 100 mmol/ L 98-107 Not Available [facility] (Lab) [address] [place], [address], 07/17/2024 11:17:16 07/17/20 24 07/17/2024 COMPR EHENS FRANCISCO JAVIER METAB OLIC PANEL carbon dioxide 32 mmol/ L 22-30 high Not Available [facility] (Lab) [address] [place], [address], 07/17/2024 11:17:16 07/17/20 24 07/17/2024 COMPR EHENS FRANCISCO JAVIER METAB OLIC PANEL anion gap 7.7 mmol/ L 14-22 low Not Available [facility] (Lab) [address] [place], [address], 07/17/2024 11:17:16 07/17/2007/17/2024 COMPR EHENS FRANCISCO JAVIER METAB OLIC PANEL glucose 107 mg/dL 70-99 high Not Available [facility] (Lab) [address] [place], [address], 07/17/2024 11:17:16 07/17/2007/17/2024 COMPR EHENS FRANCISCO JAVIER METAB OLIC PANEL BUN 12 mg/dL 8-19 Not Available [facility] (Lab) [address] [place], [address], 07/17/2024 11:17:16 07/17/2007/17/2024 COMPR EHENS FRANCISCO JAVIER METAB OLIC PANEL creatinine 0.88 mg/dL 0.66-1 .25 Not Available [facility] (Lab) [address] [place], [address], 07/17/2024 11:17:16 07/17/2007/17/2024 COMPR EHENS FRANCISCO JAVIER METAB OLIC PANEL GFR >60 Refer ence Range : [place] ge GFR Healt hy Adult : >60 mL/mi n/1.7 3 m2 Chron ic Kidne y Disea se: 15-60 mL/mi n/1.7 3 m2 Kidne y Failu re: <15/m L/min /1.73 m2 www.n iddk. nih.g ov The MDRD study equat ion has not been valid ated in child helen <18 years of age; pregn ant women ; the elder ly >85 years of age; or in some racia l or ethni c subgr oups, such as Hisyuridia nics. Outsi de the valid ated karri eters , estim ated GFR is less accur ate, requi ring clini manuel judgm ent on a case- by-ca se basis . Clini manuel inter preta tion for other races and ages must be made by the clini ander. The MDRD study equat ion has not been valid ated for the evalu ation of serum creat inine relat ed to nutri esther l statu s or medic ation usage . For perso ns <18 years of age, a pedia tric GFR calcu lator is avail able on the [facility] websi te: https :[email or web address] rg/pr ofess ional s/kdo qi/gf r_cal culat or Not Available [facility] (Lab) [address] [place], [address], 07/17/2024 11:17:16 07/17/2007/17/2024 COMPR EHENS FRANCISCO JAVIER METAB OLIC PANEL alkaline phosphatase 127 U/L 38-126 high Not Available [facility] (Lab) [address] [place], [address], 07/17/2024 11:17:16 07/17/2007/17/2024 COMPR EHENS FRANCISCO JAVIER METAB OLIC PANEL alanine aminotransfe rase 30 U/L 0-50 Not Available [facility] (Lab) [address] [place], [address], 07/17/2024 11:17:16 07/17/20 24 07/17/2024 COMPR EHENS FRANCISCO JAVIER METAB OLIC PANEL aspartate aminotransfe rase 35 U/L 15-46 Not Available [facility] (Lab) [address] [place], [address], 07/17/2024 11:17:16 07/17/2007/17/2024 COMPR EHENS FRANCISCO JAVIER METAB OLIC PANEL bilirubin, total 1.00 mg/dL 0.20-1 .30 Not Available [facility] (Lab) [address] [place], [address], 07/17/2024 11:17:16 07/17/2007/17/2024 COMPR EHENS FRANCISCO JAVIER METAB OLIC PANEL calcium 9.9 mg/dL 8.4-10 .2 Not Available [facility] (Lab) [address] [place], [address], 07/17/2024 11:17:16 07/17/2007/17/2024 COMPR EHENS FRANCISCO JAVIER METAB OLIC PANEL total protein 7.4 g/dL 6.3-8. 2 Not Available [facility] (Lab) [address] [place], [address], 07/17/2024 11:17:16 07/17/2007/17/2024 COMPR EHENS FRANCISCO JAVIER METAB OLIC PANEL albumin 4.3 g/dL 3.0-4. 4 Not Available [facility] (Lab) [address] [place], [address], 07/17/2024 11:17:16 07/17/2007/17/2024 COMPR EHENS FRANCISCO JAVIER METAB OLIC PANEL globulin 3.1 g/dL 2.6-4. 2 Not Available [facility] (Lab) [address] [place], [address], 07/17/2024 11:17:16 07/17/2007/17/2024 COMPR EHENS FRANCISCO JAVIER METAB OLIC PANEL A/G ratio 1.4 ratio 1.0-2. 0 Not Available [facility] (Lab) [address] [place], [address], 07/17/2024 11:17:16 07/17/2007/17/2024 LIPID PANEL cholesterol 178 mg/dL 140-19 9 NIH TREVOR NSUS RECOM MENDA TION FOR MELQUIADES STERO L: ADULT CHILD LOW RISK: <200 <170 BORDE RLINE : <200- 239 ----- HIGH RISK: >240 >200 Not Available [facility] (Lab) [address] [place], [address], 07/17/2024 11:17:19 07/17/2007/17/2024 LIPID PANEL triglyceride s 51 mg/dL 0-150 NIH TREVOR NSUS REPOR T RECOM MENDA TION FOR TRIGL YCERI МАРИЯ: ADULT CHILD LOW RISK: <150 ----- BODER LINE: 150-1 99 ----- HIGH RISK: >200 ----- Not Available [facility] (Lab) [address] [place], [address], 07/17/2024 11:17:19 07/17/2007/17/2024 LIPID PANEL HDL cholesterol 96 mg/dL 40- Not Available [facility] (Lab) [address] [place], [address], 07/17/2024 11:17:19 07/17/2007/17/2024 LIPID PANEL LDL cholesterol, calculated 72 mg/dL 0-130 NIH TREVOR NSUS REPOR T RECOM MENDA TIONS FOR LDL: ADULT CHILD LOW RISK <130 <110 (OPTI MAL LDL) <100 ----- BORDE RLINE : 130-1 59 ----- HIGH RISK: >160 >130 A TRIGL YCERI DE RESUL T >400 INVAL IDATE S THE CALCU LATIO N FOR LDL FRACT IONAT ION - THE LDL RESUL T WILL NOT BE REPOR ADAM. Not Available [facility] (Lab) [address] [place], [address], 07/17/2024 11:17:19 07/17/20 24 07/17/2024 CBC/C OMPLE TE BLD COUNT W/DIF F white blood cells 3.9 x10'3 /uL 4.2-10 .8 low Not Available [facility] (Lab) [address] [place], [address], 07/17/2024 11:31:11 07/17/2007/17/2024 CBC/C OMPLE TE BLD COUNT W/DIF F red blood cells 4.67 x10'6 /uL 4.10-5 .80 Not Available [facility] (Lab) [address] [place], [address], 07/17/2024 11:31:11 07/17/2007/17/2024 CBC/C OMPLE TE BLD COUNT W/DIF F hemoglobin 14.1 g/dL 13.2-1 7.0 Not Available [facility] (Lab) [address] [place], [address], 07/17/2024 11:31:11 07/17/2007/17/2024 CBC/C OMPLE TE BLD COUNT W/DIF F hematocrit 42.2 % 39.3-5 0.0 Not Available [facility] (Lab) [address] [place], [address], 07/17/2024 11:31:11 07/17/2007/17/2024 CBC/C OMPLE TE BLD COUNT W/DIF F mean red cell volume 90.4 fL 80.0-9 7.0 Not Available [facility] (Lab) [address] [place], [address], 07/17/2024 11:31:11 07/17/2007/17/2024 CBC/C OMPLE TE BLD COUNT W/DIF F mean red cell hemoglobin 30.2 pg 27.0-3 3.0 Not Available [facility] (Lab) [address] [place], [address], 07/17/2024 11:31:11 07/17/20 24 07/17/2024 CBC/C OMPLE TE BLD COUNT W/DIF F mean RBC HGB concentratio n 33.4 g/dL 31.0-3 6.0 Not Available [facility] (Lab) [address] [place], [address], 07/17/2024 11:31:11 07/17/2007/17/2024 CBC/C OMPLE TE BLD COUNT W/DIF F red cell distribution width 13.2 % 11.8-1 5.5 Not Available [facility] (Lab) [address] [place], [address], 07/17/2024 11:31:11 07/17/2007/17/2024 CBC/C OMPLE TE BLD COUNT W/DIF F platelets 260 x10'3 /uL 150-40 0 Not Available [facility] (Lab) [address] [place], [address], 07/17/2024 11:31:11 07/17/2007/17/2024 CBC/C OMPLE TE BLD COUNT W/DIF F mean platelet volume 10.1 fL 9.0-12 .4 Not Available [facility] (Lab) [address] [place], [address], 07/17/2024 11:31:11 07/17/2007/17/2024 CBC/C OMPLE TE BLD COUNT W/DIF F neutrophils 41.9 % 39.0-7 2.0 Not Available [facility] (Lab) [address] [place], [address], 07/17/2024 11:31:11 07/17/2007/17/2024 CBC/C OMPLE TE BLD COUNT W/DIF F lymphocytes 47.5 % 16.0-4 7.0 high Not Available [facility] (Lab) [address] [place], [address], 07/17/2024 11:31:11 07/17/2007/17/2024 CBC/C OMPLE TE BLD COUNT W/DIF F monocytes 8.8 % 5.0-12 .0 Not Available [facility] (Lab) [address] [place], [address], 07/17/2024 11:31:11 07/17/2007/17/2024 CBC/C OMPLE TE BLD COUNT W/DIF F eosinophils 1.0 % 1.0-7. 0 Not Available [facility] (Lab) [address] [place], [address], 07/17/2024 11:31:11 07/17/2007/17/2024 CBC/C OMPLE TE BLD COUNT W/DIF F basophils 0.5 % 0.0-2. 0 Not Available [facility] (Lab) [address] [place], [address], 07/17/2024 11:31:11 07/17/2007/17/2024 CBC/C OMPLE TE BLD COUNT W/DIF F immature granulocytes 0.3 % 0.00-0 .50 Not Available [facility] (Lab) [address] [place], [address], 07/17/2024 11:31:11 07/17/2007/17/2024 CBC/C OMPLE TE BLD COUNT W/DIF F neutrophils, absolute count 1.62 x10'3 /uL 1.5-8. 0 Not Available [facility] (Lab) [address] [place], [address], 07/17/2024 11:31:11 07/17/2007/17/2024 CBC/C OMPLE TE BLD COUNT W/DIF F lymphocytes, absolute count 1.84 x10'3 /uL 1.07-3 .43 Not Available [facility] (Lab) [address] [place], [address], 07/17/2024 11:31:11 07/17/2007/17/2024 CBC/C OMPLE TE BLD COUNT W/DIF F monocytes, absolute count 0.34 x10'3 /uL 0.29-0 .99 Not Available [facility] (Lab) [address] [place], [address], 07/17/2024 11:31:11 07/17/20 24 07/17/2024 CBC/C OMPLE TE BLD COUNT W/DIF F eosinophils, absolute count 0.04 x10'3 /uL 0.02-0 .53 Not Available [facility] (Lab) [address] [place], [address], 07/17/2024 11:31:11 07/17/2007/17/2024 CBC/C OMPLE TE BLD COUNT W/DIF F basophils, absolute count 0.02 x10'3 /uL 0.01-0 .08 Not Available [facility] (Lab) [address] [place], [address], 07/17/2024 11:31:11 07/17/2007/17/2024 CBC/C OMPLE TE BLD COUNT W/DIF F immature granulocytes ,absolute 0.01 x10'3 /uL 0.00-0 .05 Not Available [facility] (Lab) [address] [place], [address], 07/17/2024 11:31:11 07/17/2007/17/2024 CBC/C OMPLE TE BLD COUNT W/DIF F nucleated red blood cells 0.0 % -0 Not Available [facility] (Lab) [address] [place], [address], 07/17/2024 11:31:11 07/17/2007/17/2024 CBC/C OMPLE TE BLD COUNT W/DIF F NRBC# 0.00 x10'3 /uL Not Available [facility] (Lab) [address] [place], [address], 07/17/2024 11:31:11 07/17/20 24 07/17/2024 T4 FREE free T4 1.16 NG/dL 0.78-2 .19 Not Available [facility] (Lab) [address] [place], [address], 07/17/2024 11:34:13 07/17/2007/17/2024 TSH thyroid-stim ulating hormone 0.876 uIU/m L 0.465- 4.680 Not Available [facility] (Lab) [address] [place], [address], 07/17/2024 11:39:53 07/17/2007/17/2024 PSA, TOTAL PSA, total 0.95 NG/mL 0.00-4 .00 Not Available [facility] (Lab) [address] [place], [address], 07/17/2024 11:39:56 07/17/2007/17/2024 HEMOG LOBIN A1C HA1C 5.7 % 4.0-6. 0 Diabe ion Scree colt Crite itz: <5.7% Consi stent with absen ce of diabe ion 5.7-6 .4% Consi stent with incre ased risk for diabe ion (pred iabet es) >OR=6 .5% Consi stent with diabe ion REFER ENCE: Diabe ion Care 2016, 39(Ratliff ppl.1 ):s13 -s22 Not Available [facility] (Lab) [address] [place], [address], 07/17/2024 14:07:31 06/27/20 24 06/26/2024 imagi ng/di agnos tic resul t No observ ation record ed. [facility] [address], [place], [address], 06/27/2024 17:32:25 08/24/20 24 08/24/2024 US, abdom en, limit ed [facility] [address] [facility] [address], [place] [address] Patien t Name: CARLOS A MYRICK ion #: [id number] Sex: M : 1954 4 Dictat ed By: Frederick falcon Attend ing Physic suzi: CAM MOHAMUD Orderi ng Physic suzi: CAM MOHAMUD Exam Date: 2023 07:55 AM Exam Name: US ABDOME N SINGLE ORGAN Admitt ing Diagno sis(es ): CLINIC AL INFORM ATION: 69 years old, Male; elevat ed liver functi on tests. TECHNI QUE: Graysc martin sonogr aphic imagin g of the right upper quadra nt of the abdome n was perfor med, assist ed by color Dopple r techni ques. COMPAR LUCY: US ABDOME N RETROP ER on DOS: 02/15/23 FINDIN GS: The gallbl adder wall measur es 2.2 mm in thickn ess, within normal limits . No stones are seen. Negati ve report ed sonogr aphic greene 's sign. The common bile duct measur es 4.2 mm in diamet er, within normal limits . Hetero geneou s echoge nicity of the liver. Liver is within normal limits in size, measur ing up to 14.4 cm in cranio caudal dimens ion. The pancre as is obscur ed by bowel gas. The right kidney measur es 10.1 cm. There is no hydron ephros is. Right renal cortic al echoge nicity and cortic al thickn ess are within normal limits . IMPRES MAGI: 1. Hetero geneou s echoge nicity of the liver. 2. No sonogr aphic eviden ce of acute cholec ystiti s. No biliar y ductal dilata tion. Electr onical ly Signed by: Frederick falcon at 2023 07:12: 35 AM Page 1 INTERFACE [facility] (Imaging) [address] [facility], [place], [address], 08/24/2024 10:15:03 08/24/20 24 08/24/2024 US, liver No observ ation record ed. [facility] [address] [place], [place], [id number], 08/24/2024 10:17:13 Result Notes None recorded. Problems Name Problem SNOMED Code Status Onset Date Resolution Date Notes Provider Name and Address Organization Details Recorded Time White blood cell abnormalit y 356493988 Active 2021 Not Available [facility] 4 09:03:03 Abdominal pain 65040274 Active Not Available [facility] 4 09:03:03 Type 2 diabetes mellitus without complicati on 477386621 Active 2021 Not Available [facility] 4 09:03:03 Blood in urine 66489356 Active Not Available [facility] 4 09:03:04 Type 2 diabetes mellitus 74987934 Active 2019 Not Available [facility] 4 09:03:04 Hand pain 16968652 Active 2021 Not Available [facility] 4 09:03:04 Hyperlipid emia 86778083 Active Not Available [facility] 4 09:03:04 Essential hypertensi on 72175407 Active Not Available [facility] 4 09:03:04 Diabetes mellitus 59129634 Active 2019 Not Available [facility] 4 09:03:04 Neck pain 15898696 Active Not Available [facility] 4 09:03:04 Gout 08142803 Active Not Available [facility] 4 09:03:04 Proteinuri a 15057474 Active 2022 Not Available [facility] 4 09:03:03 Pain in right hand 2739789793204 09 Active 2022 Not Available [facility] 4 09:03:03 Hyperprote inemia 19584493 Active 2022 Not Available [facility] 4 09:03:04 Leukopenia 89784115 Active 2022 Not Available [facility] 4 09:03:04 Benign prostatic hyperplasi a without outflow obstructio n 121978145 Active 2022 Not Available [facility] 4 09:03:03 Alkaline phosphatas e above reference range 720241789 Active 2023 Rafael tran MD [address] [facility], [facility] [address], [place], [address] , [facility] [employer] [facility] [employer] [facility] 09:59:19 Problem Notes None recorded. Procedures Surgical History Date Name Laterality Status Provider Name and Address Organization Details Recorded Time 08/02/20 24 Nail Debridement completed Urbano Khan DPM [address] [facility], [facility] [address], [place], [address], [facility] [employer] [facility] [employer] [facility] 08/03/2024 09:17:58 07/29/20 23 Medicare Wellness CPT Code, subsequent completed Nikole Castañeda RN [facility] [employer] [facility] 07/29/2023 09:54:33 09/25/20 22 Colonoscopy completed KIRSTEN Syed [place] [employer] [facility] [employer] [facility] 04/29/2023 09:40:03 biopsy of prostate completed Not Available [facility] 12/09/2022 05:56:31 Hernia Repair completed Not Available [facility] 12/09/2022 05:56:31 Imaging Results Imaging Date Name Status LastModified by Organiz ation Details LastModified Time 06/26/2024 imaging/diagn ostic result active [facility] [address] [facility] [address], [place], [address], 06/27/2024 17:32:25 08/24/2024 US, abdomen, limited active [facility] (Imaging) [address] [place], [address], 08/24/2024 10:15:03 08/24/2024 US, liver active [facility] [address] [place], [address], 08/24/2024 10:17:13 Procedure Notes None recorded. Medical Equipment None Reported. Allergies Allergen ID Allergen Name Allergen Category Reaction Reaction Severity Criticality Documentation Date Start Date Code Code System Note Provider Name and Address Organization Details Recorded Time 61273 lisinopri l medicatio n hives Not available Not available 12/09/2022 54470 RxNorm Not Available [facility] 3 06:08:52 48708 enalapril Not available hives Not available Not available 12/09/2022 3827 RxNorm Not Available [facility] 3 06:08:53 Medications Name Sig Start Date Stop Date Status Note LastModified by Organization Details LastModified Time latanoprost 0.005 % eye drops active Not Available Not Available Not Available metformin 500 mg tablet TAKE 1 TABLET TWICE DAILY active Not Available Not Available No t Available atorvastati n 20 mg tablet TAKE 1 TABLET EVERY DAY active Not Available Not Available No t Available enalapril maleate 10 mg tablet Take 1 tablet(s) every day by oral route for 30 days. 12/21 completed Not Available Not Available Not Available enalapril maleate 5 mg tablet Take 1 tablet every day by oral route. active Not Available Not Available No t Available atorvastati n 10 mg tablet Take 1 tablet(s) every day by oral route. 10/26 completed Not Available Not Available Not Available ibuprofen 800 mg tablet 12/21 completed Not Available Not Available Not Available hydrocodone 5 mg-acetamin ophen 325 mg tablet 12/21 completed Not Available Not Available Not Available lisinopril 20 mg tablet 08/08 completed Not Available Not Available Not Available Accu-Chek Softclix Lancets TEST BLOOD SUGAR EVERY DAY active Not Available Not Available No t Available acetaminoph en 300 mg-codeine 30 mg tablet active Not Available Not Available Not Available allopurinol 100 mg tablet 1 QD 12/21 completed Not Available Not Available Not Available hydrocodone 10 mg-acetamin ophen 325 mg tablet Take 1 tablet every 4 hours by oral route. 08/08 completed Not Available Not Available Not Available peg-electro lyte solution 420 gram oral solution DRINK 1/2 OF SOLUTION AT 5 PM ON 09/24, THEN DRINK 1/2 OF SOLUTION AT 5 AM ON 09/25 completed Not Available Not Available Not Available carvedilol 3.125 mg tablet Take 1 tablet twice a day by oral route for 90 days. 08/08 completed Not Available Not Available Not Available tamsulosin 0.4 mg capsule Take 1 capsule every day by oral route for 90 days. active Not Available Not Available No t Available Kenalog 10 mg/mL suspension for injection In office injection administe red by the provider 07/23 completed ND: 0003- 0494- 20 Not Available Not Available Not Available amlodipine 10 mg tablet TAKE 1 TABLET EVERY DAY active Not Available Not Available No t Available hydrochloro thiazide 12.5 mg capsule TAKE 1 CAPSULE EVERY DAY active Not Available Not Available No t Available etodolac 400 mg tablet Take 1 tablet twice a day by oral route for 30 days. active Not Available Not Available No t Available furosemide 20 mg tablet Take 1 tablet every day by oral route for 90 days. active Not Available Not Available No t Available metoprolol succinate ER 25 mg tablet,exte nded release 24 hr Take 1 tablet every day by oral route. active Not Available Not Available No t Available ergocalcife rol (vitamin D2) 1,250 mcg (50,000 unit) capsule Take 1 capsule every week by oral route for 90 days. active Not Available Not Available No t Available Aspir-81 mg tablet,phyllis yed release Take 1 tablet every day by oral route. 2017 active Not Available Not Available Not Avai lable levofloxaci n 500 mg tablet Take 1 tablet every 24 hours by oral route. 08/08 completed Not Available Not Available Not Available calcitriol 0.25 mcg capsule active Not Available Not Available Not Available chlorhexidi ne gluconate 0.12 % mouthwash active Not Available Not Available No t Available lidocaine (PF) 10 mg/mL (1 %) injection solution In office injection administe red by the provider 07/23 completed ND: 0409- 4276- 17 Not Available Not Available Not Available Combigan 0.2 %-0.5 % eye drops active Not Available Not Available No t Available diclofenac 1 % topical gel APPLY 2 GRAM TO THE AFFECTED AREA(S) BY TOPICAL ROUTE 4 TIMES PER DAY 06/19 completed Not Available Not Available Not Available TRUEplus Lancets 30 gauge USE 1 LANCET TO CHECK GLUCOSE ONCE DAILY active Not Available Not Available No t Available Accu-Chek Guide test strips TEST BLOOD SUGAR EVERY DAY active Not Available Not Available No t Available Accu-Chek Guide Glucose Meter USE DIRECTED active Not Available Not Available No t Available Accu-Chek Guide L1-L2 Control Solution active Not Available Not Available Not Available Fluzone High-Dose 2019-20 (PF) 180 mcg/0.5 mL intramuscul ar syringe PHARMACIS T ADMINISTE RED IMMUNIZAT ION ADMINISTE RED AT TIME OF DISPENSIN G active Not Available Not Available No t Available DropSafe Alcohol Prep Pads APPLY TOPICALLY ONE TIME DAILY DIRECTED active Not Available Not Available No t Available Vitals Date Recorded Body height Body mass index (BMI) Body weight Body temperature Heart rate Systolic blood pressure Diastolic blood pressure Provider Name and Address Organization Details Last Updated DateTime 3 175.26 cm 20.5 kg/m2 18505.5 4 g 97.7 [degF] 60 /min 112 mm[Hg] 60 mm[Hg] Gayle Oconnell Yair [facility] [employer] [facility] 3 09:49:06 Date Recorded Pain severity - 0-10 verbal numeric rating [Score] - Reported Provider Name and Address Organization Details Last Updated DateTime 07/29/2023 0 Nikole Castañeda RN [facility] [employer] 07/29/2023 09:54:52 Date Recorded Body height Body mass index (BMI) Body weight Body temperature Heart rate Systolic blood pressure Diastolic blood pressure Provider Name and Address Organization Details Last Updated DateTime 4 175.26 cm 21.1 kg/m2 40519.7 1 g 97.7 [degF] 72 /min 118 mm[Hg] 60 mm[Hg] Gayle Oconnell Yair [facility] [employer] [facility] 4 10:07:04 Date Recorded Body height Body mass index (BMI) Body weight Body temperature Heart rate Oxygen saturation Oxygen saturation in Arterial blood by Pulse oximetry Pain severity - 0-10 verbal numeric rating [Score] - Reported Systolic blood pressure Diastolic blood pressure Provider Name and Address Organization Details Last Updated DateTime 4 175.26 cm 20.8 kg/m2 11279.5 2 g 97.4 [degF] 61 /min 98 % 98 % 0 118 mm[Hg] 68 mm[Hg] Shayy Hebert [place] [facility] [employer] [facility] 4 09:54:24 Date Recorded Body height Body mass index (BMI) Body weight Oxygen saturation Oxygen saturation in Arterial blood by Pulse oximetry Body temperature Heart rate Provider Name and Address Organization Details Last Updated DateTime 4 175.26 cm 20.8 kg/m2 25089.5 2 g 96 % 96 % 97.8 [degF] 72 /min John Horne [facility] [employer] [facility] 4 14:54:05 Date Recorded Body height Body mass index (BMI) Body weight Body temperature Heart rate Systolic blood pressure Diastolic blood pressure Provider Name and Address Organization Details Last Updated DateTime 5 175.26 cm 20.4 kg/m2 10175.7 5 g 97.6 [degF] 78 /min 124 mm[Hg] 68 mm[Hg] Gayle Oconnell [facility] [employer] [facility] 5 09:32:57 Social History Question Answer Notes LastModified by Organization Details LastModified Time Tobacco Smoking Status Never Smoker Not Available [facility] 12/09/2022 05:54:30 Do You Have An Advance Directive? No Patient Declined Informatio n. MIGRATION.0301 [id number] Information not available 12/09/2022 What Is Your Level Of Alcohol Consumption? Occasional Beer MIGRATION.0301 579012 Information not available 12/09/2022 Are You Blind Or Do You Have Difficulty Seeing? No MIGRATION.0301 039591 Information not available 12/09/2022 What Is Your Level Of Caffeine Consumption? Moderate MIGRATION.0301 [id number] Information not available 12/09/2022 How Much Tobacco Do You Chew? None MIGRATION.0301 050363 Information not available 12/09/2022 In The 14 Days Before Symptom Onset, Have You Had Close Contact With A Laboratory-conf irmed COVID-19 While That Case Was Ill? No MIGRATION.0301 642001 Information not available 12/09/2022 In The 14 Days Before Symptom Onset, Have You Had Close Contact With A Person Who Is Under Investigation For COVID-19 While That Person Was Ill? No MIGRATION.0301 057645 Information not available 12/09/2022 Are You Deaf Or Do You Have Serious Difficulty Hearing? No MIGRATION.0301 237314 Information not available 12/09/2022 What Type Of Diet Are You Following? DIABETIC Semi Diet For Diabetes MIGRATION.0301 789335 Information not available 12/09/2022 Which Illicit Or Recreational Drugs Have You Used? None MIGRATION.0301 177830 Information not available 12/09/2022 Do You Or Have You Ever Used E-cigarettes Or Vape? Never Used Electronic Cigarettes MIGRATION.0301 701728 Information not available 12/09/2022 What Is Your Occupation? Retired MIGRATION.0301 774891 Information not available 12/09/2022 Have There Been Any Changes To Your Family Or Social Situation? No MIGRATION.0301 030549 Information not available 12/09/2022 What Is The Fluoride Status Of Your Home? Unknown MIGRATION.0301 335000 Information not available 12/09/2022 Do You Use Insect Repellent Routinely? No MIGRATION.0301 556497 Information not available 12/09/2022 [facility] M[facility].0301 [id number] Information not available 12/09/2022 Are You Able To Care For Yourself? Yes [email or web address] Information not available 07/29/2023 Are You Blind Or Do Yo Have Difficulty Seeing? No [email or web address] Information not available 07/29/2023 Are You Deaf Or Do You Have Serious Difficulty Hearing? No Information not available 07/29/2023 Live Alone Of With Others? Alone [email or web address] Information not available 07/29/2023 Do You Have A Medical Power Of Dietetic Technician Registered? No MIGRATION.0301 [id number] Information not available 12/09/2022 What Was The Date Of Your Most Recent Tobacco Screening? 11/14/2024 [email or web address] Information not available 11/14/2024 How Many Children Do You Have? -1 Information not available 07/25/2024 Do You Have Any Pets? No [email or web address] Information not available 07/29/2023 What Is Your Relationship Status? Single Information not available 07/25/2024 Do You Use Your Seat Belt Or Car Seat Routinely? Yes MIGRATION.0301 212171 Information not available 12/09/2022 Do You Have Smoke And Carbon Monoxide Detectors In Your Home? Yes MIGRATION.0301 291534 Information not available 12/09/2022 Are You Passively Exposed To Smoke? No MIGRATION.0301 961062 Information not available 12/09/2022 Do You Or Have You Ever Used Smokeless Tobacco? Never Used Smokeless Tobacco MIGRATION.0301 253782 Information not available 12/09/2022 Are There Any Smokers In Your House? No MIGRATION.0301 969309 Information not available 12/09/2022 How Much Tobacco Do You Smoke? No MIGRATION.0301 550428 Information not available 12/09/2022 Do You Feel Stressed (tense, Restless, Nervous, Or Anxious, Or Unable To Sleep At Night)? [id number] MIGRATION.0301 917154 Information not available 12/09/2022 Do You Use Any Illicit Or Recreational Drugs? No MIGRATION.0301 205701 Information not available 12/09/2022 Do You Use Sunscreen Routinely? No MIGRATION.0301 976214 Information not available 12/09/2022 Has Tobacco Cessation Counseling Been Provided? No MIGRATION.0301 507258 Information not available 12/09/2022 Have You Recently Traveled Abroad? No MIGRATION.0301 640124 Information not available 12/09/2022 Do You Have Any Dietary Restrictions? No MIGRATION.0301 485395 Information not available 12/09/2022 Do You Or Have You Ever Used Any Other Forms Of Tobacco Or Nicotine? No MIGRATION.0301 214975 Information not available 12/09/2022 Sex: Unknown Functional Status Question Answer Note LastModified by Organizat ion Details LastModified Time Do you have difficulty walking or climbing stairs? No MIGRATION.[id number] 026 Information not available 12/09/2022 Do you have transportation difficulties? Yes MIGRATION.2790220 026 Information not available 12/09/2022 Are you able to walk? YESWOREST MIGRATION.9666571 026 Information not available 12/09/2022 Do you have difficulty doing errands alone? No MIGRATION.4022795 026 Information not available 12/09/2022 Are you able to care for yourself? Yes MIGRATION.1295166 026 Information not available 12/09/2022 Do you have difficulty dressing or bathing? No MIGRATION.6114921 026 Information not available 12/09/2022 What is your exercise level? Moderate MIGRATION.3600110 026 Information not available 12/09/2022 Mental Status Question Answer Note LastModified by Organizat ion Details LastModified Time Do you have difficulty concentrating, remembering or making decisions? No MIGRATION.[id number] 6 Information not available 12/09/2022 Family History Relationship Description Onset Age of this Age Resolved Age Notes LastModified by Organization Details LastModified Time Brother Diabetes mellitus MIGRATION.295 [id number] Not available 12/09/2022 05:56:34 Brother Hypertensive disorder MIGRATION.893 [id number] Not available 12/09/2022 05:56:34 Medical History Condition Response NERVE DISEASE N BLINDNESS N RHEUMATIC FEVER N KIDNEY STONES N BLADDER PROBLEMS N MRSA N OTHER # 1 N POLIO N LUNG DISEASE/DISORDER N HISTORY OF DRUG ABUSE N RADIATION / CHEMOTHERAPY N COPD N Other # 2 N BLOOD DISEASES N EAR OR HEARING PROBLEMS N MUMPS N SHINGLES N DEPRESSION (INCLUDING POST ) N BOWEL PROBLEMS N STROKE/TIA N ULCERS N BENIGN PROSTATIC HYPERPLASIA N MEASLES N HYPOTENSION N MYOCARDIAL INFARCTION N OBESITY N GERD/NAUSEA N ANEURYSM N URINARY/BLADDER/KIDNEY PROBLEMS N CORONARY ARTERY DISEASE (CAD) N ADDICTION CONCERNS N Impotence N ENDOMETRIOSIS N USE OF BLOOD THINNERS N SKIN PROBLEMS N GASTROINTESTINAL DISORDER N PERIPHERAL VASCULAR DISEASE N MUSCLE,JOINT OR BONE PROBLEMS N GASTROINTESTINAL BLEEDING N BLOOD CLOTS N ASTHMA N CATARACTS N ERECTILE DYSFUNCTION N VARICOSITIES N GI PROBLEMS N Low Testosterone N INFERTILITY N AIDS/HIV N CHEMOTHERAPY / RADIATION N LIVER DISEASE N MALE HYPOGONADISM N HYPERTENSION Y Deficiency N TOURETTE'S N ANXIETY DISORDER N BLOOD TRANSFUSION N ANEMIA/BLOOD DISORDER N CHRONIC EAR INFECTIONS N BRONCHITIS N TUBERCULOSIS N GLAUCOMA N FOOT PROBLEM N DIVERTICULITIS N SLEEP APNEA N CHICKENPOX N INFECTIOUS DISEASE N PROSTATE N HEART ARRHYTHMIA N INSOMNIA N HIGH CHOLESTEROL / HYPERLIPIDEMIA Y EYE PROBLEMS N HYPERTHYROIDISM N EDEMA N CHRONIC PAIN SYNDROME N HYPOTHYROIDISM N CAROTID BLOCKAGE N CONSTIPATION N BACK / NECK PROBLEMS N ATHEROSCLEROSIS N BREAST PROBLEMS N DIALYSIS N ECZEMA N OSTEOPOROSIS Y ARTHRITIS Y APPENDICITIS N DIABETES, TYPE Y BAD TEETH N ENT N HEARTBURN / REFLUX N AUTISM SPECTRUM DISORDER (ASD) N HEPATITIS / LIVER DISEASE N GOUT Y SLEEP DISORDER N ALZHEIMER'S DISEASE N Brain Problems N DEMENTIA N HERPES N SEIZURES/EPILEPSY N HEADACHES/MIGRAINES N VASCULAR DISEASE N PACEMAKER N Blood Disorder N DIZZINESS N HEART DISEASE/HEART PROBLEMS N KIDNEY DISEASE N MULTIPLE SCLEROSIS N CANCER: SPECIFY N CARDIAC ARRHYTHMIA N ATRIAL FIBRILLATION N Gall Stones N PULMONARY EMBOLISM N AUTOIMMUNE DISEASE N Immunizations Vaccine Type Date Status Note Provider Nam e and Address Organization Details Recorded Time Influenza, high-dose, quadrivalent, PF 3 completed KIRSTEN Syed [place] - [employer] 07/14/2023 10:21:59 COVID-19, mRNA, LNP-S, PF, 100 mcg/0.5mL dose or 50 mcg/0.25mL dose 1 completed Not Available [facility] 11/23/2023 09:03:05 COVID-19, mRNA, LNP-S, PF, 100 mcg/0.5mL dose or 50 mcg/0.25mL dose 1 completed Not Available [facility] 11/23/2023 09:03:05 Influenza, high-dose, trivalent, PF 1 completed Not Available [facility] 11/23/2023 09:03:05 SARS-COV-2 (COVID-19) vaccine, UNSPECIFIED 1 completed Not Available [facility] 11/23/2023 09:03:05 Influenza, split virus, quadrivalent, preservative 9 completed Not Available [facility] 11/23/2023 09:03:05 Influenza, high-dose, quadrivalent, PF 2 completed Not Available [facility] 11/23/2023 09:03:05 Influenza, high-dose, quadrivalent, PF 0 completed Not Available [facility] 11/23/2023 09:03:05 pneumococcal polysaccharide PPV23 9 completed Not Available [facility] 11/23/2023 09:03:05 Influenza, high-dose, trivalent, PF 8 completed Not Available [facility] 11/23/2023 09:03:05 Pneumococcal conjugate PCV 13 8 completed Not Available [facility] 11/23/2023 09:03:05 Influenza, high-dose, trivalent, PF 4 completed KIRSTEN Syed, CHOCO Machado [facility] [employer] [facility] 07/06/2024 12:42:11 Past Encounters Encounter ID Performer Location Encounter Start Date Encounter Closed Date Diagnosis/Indication Diagnosis SNOMED-CT Code Diagnosis ICD10 Code Diagnosis Note [id number] [facility] [address] [place] [address] Ave[address] [address] 04/17/2021 00:00:00 04/17/2021 12:24:35 [id number] [facility] [address] [place], [place] [address]e., [address] [address] 09/18/2021 00:00:00 09/18/2021 10:07:57 [id number] _ATHENA_M IGRATION_ DEFAULT_1 _1 , 11/07/2021 00:00:00 11/09/2021 20:36:01 [id number] [facility] [address] [place], [place] [address]., [address] [address] 01/15/2022 00:00:00 01/15/2022 11:35:35 [id number] [facility] [place] [address] [place] [address] 02/17/2022 00:00:00 02/17/2022 12:23:23 [id number] [facility] [address] [address] 07/23/2022 00:00:00 07/23/2022 15:24:30 [id number] Rafael tran MD [facility] [address] [address] 04/29/2023 09:34:40 04/29/2023 09:54:59 Screening for malignant neoplasm of prostate 449210614 Z12.5 Benign pro static hyperplasia without outflow obstruction 582151040 N40.0 On flomax, started by Dr Morrison IJ Screening - NAD 04983879 3 Z13.9 C-scope 06/29/12: Dr Ariela montana next in 10 years, ordered 07/23/2022 C-scope 09/25/2022 : Dr Quezada, next in 10 years Get yearly flu shotUTD #13 01/10/18, #23 08/08/19Ge t Tdap if not doneGet shingles shotUTD on COVID 19 vaccine RTC 4 monthsdo labsER if worsehe did verbalize his understand ing of the above Essential hypertension 04308188 I10 On ASANot on HCTZ 12.5mg daily, states that Dr Prince RUVALCABA stopped and started on lasixOn amlodipine 10mg dailyOn metoprolol ER 25mg dailyOn lasix 20mg dialy Cannot do ACEI or ARB d/t allergyGet an apt with [facility] as per his wishes, as he wants to check his 'heart', he will see Dr Reed at 11.00am tomorrow Dr Reed 02/25/2022 , started on metoprolol 25mg dailyDr Brianna 11/20/2022 Type 2 pranay betes mellitus without complication 961710765 E11.9 On metformin 500mg po bidGet labsDr Rammacher 11/07/2021 Hyperlipidemia 73869600 E78.5 On ASAOn atorvastat in 20mg daily Get labs Pain in right hand 83802 90839 83683 M79.641 C/o R thumb pain, feels that there is swelling, feels better when he 'soaks it' in epsom saltsRefer to Dr Jovanna Nugent 02/17/2022 Hyperproteinemia 3146796 9 E88.09 C/o R thumb pain, feels that there is swelling, feels better when he 'soaks it' in epsom saltsRefer to Dr Jovanna Nugent 02/17/2022 Leukopenia 08693108 D72. 819 Should get an apt with Dr Juan hematology Dr Juan 04/09/2022 , next in 3 months Proteinuria 30946171 R80 .[address] Prince RUVALCABA [id number] Rafael tran MD [facility] [address] [facility] [place] [address] 07/29/2023 09:36:54 07/29/2023 10:01:08 Screening - NAD 419962455 Z13.9 C-scope 06/29/12: Dr Ariela montana next in 10 years, ordered 07/23/2022 C-scope 09/25/2022 : Dr Quezada, next in 10 years Get yearly flu shotUTD #13 01/10/18, #23 08/08/19Ge t Tdap if not doneGet shingles shotUTD on COVID 19 vaccineGet RSV vaccine RTC 4 monthsdo labsER if worsehe did verbalize his understand ing of the above Essential hypertension 67098672 I10 On ASANot on HCTZ 12.5mg daily, states that Dr Prince RUVALCABA stopped and started on lasixOn amlodipine 10mg dailyOn metoprolol ER 25mg dailyOn lasix 20mg dialy Cannot do ACEI or ARB d/t allergyGet an apt with [facility] as per his wishes, as he wants to check his 'heart', he will see Dr Reed at 11.00am tomorrow Dr Reed 02/25/2022 , started on metoprolol 25mg dailyDr Brianna 11/20/2022 Dr Reed 05/21/2023 , f/u in 6 months Type 2 pranay betes mellitus without complication 525044865 E11.9 On metformin 500mg po bidGet labsDr Rammacher 11/07/2021 Hyperlipidemia 17967366 E78.5 On ASAOn atorvastat in 20mg daily Get labs Pain in right hand 49836 52000 35615 M79.641 C/o R thumb pain, feels that there is swelling, feels better when he 'soaks it' in epsom saltsRefer to Dr Jovanna Nugent 02/17/2022 Hyperproteinemia [id number] 9 E88.09 C/o R thumb pain, feels that there is swelling, feels better when he 'soaks it' in epsom saltsRefer to Dr Jovanna Nugent 02/17/2022 Leukopenia 96343823 D72. 819 Should get an apt with Dr Juan hematology Dr Juan 04/09/2022 , next in 3 months, referred again 07/29/2023 Proteinuria 65103654 R80 .9 US kidney 02/15/2023 : Dr Prince RUVALCABA Benign pro static hyperplasia without outflow obstruction 350341195 N40.0 On flomax, started by Dr Prince RUVALCABA Adult heal th examination 038198082 Z00.00 Screening for disorder 598590745 Z13.9 [id number] Rafael tran MD [facility] [address] [facility], [address] [place] [address] 12/28/2023 09:55:13 12/28/2023 10:33:28 Screening - NAD 832485474 Z13.9 C-scope 06/29/12: Dr Ariela montana next in 10 years, ordered 07/23/2022 C-scope 09/25/2022 : Dr Quezada, next in 10 years Get yearly flu shotUTD #13 01/10/18, #23 08/08/19Ge t Tdap if not doneGet shingles shotUTD on COVID 19 vaccineGet RSV vaccine RTC 4 monthsdo labsER if worsehe did verbalize his understand ing of the above Essential hypertension 66692601 I10 On ASANot on HCTZ 12.5mg daily, states that Dr Prince RUVALCABA stopped and started on lasixOn amlodipine 10mg dailyOn metoprolol ER 25mg dailyOn lasix 20mg dialy Cannot do ACEI or ARB d/t allergyGet an apt with [facility] as per his wishes, as he wants to check his 'heart', he will see Dr Reed at 11.00am tomorrow Dr Reed 02/25/2022 , started on metoprolol 25mg dailyDr Brianna 11/20/2022 Dr Reed 05/21/2023 , f/u in 6 months Type 2 pranay betes mellitus without complication 088774264 E11.9 On metformin 500mg po bidGet labsDr Rammacher 11/07/2021 Hyperlipidemia 90570603 E78.5 On ASAOn atorvastat in 20mg daily Get labs Pain in right hand 40708 86090 11388 M79.641 C/o R thumb pain, feels that there is swelling, feels better when he 'soaks it' in epsom saltsRefer to Dr Jovanna Nugent 02/17/2022 Leukopenia 85275834 D72. 819 Should get an apt with Dr Juan hematology Dr Juan 04/09/2022 , next in 3 months, referred again 07/29/2023 Dr Juan 12/23/2023 , f/u yearly Proteinuria 29501594 R80 .9 US kidney 02/15/2023 : Dr Prince RUVALCABA Benign pro static hyperplasia without outflow obstruction 807747862 N40.0 On flomax, started by Dr Prince RUVALCABA [id number] Rafael tran MD [facility] [address] [facility], [address] [place] [address] 07/25/2024 09:45:44 07/25/2024 10:15:27 Screening - NAD 092758834 Z13.9 C-scope 06/29/12: Dr Ariela montana next in 10 years, ordered 07/23/2022 C-scope 09/25/2022 : Dr Quezada, next in 10 years Get yearly flu shotUTD #13 01/10/18, #23 08/08/19Ge t Tdap if not doneGet shingles shotUTD on COVID 19 vaccineGet RSV vaccine RTC 4 monthsdo labsER if worsehe did verbalize his understand ing of the above Essential hypertension 34897640 I10 ECHO: 06/26/2024 : [facility] On ASANot on HCTZ 12.5mg daily, states that Dr Prince RUVALCABA stopped and started on lasixOn amlodipine 10mg dailyOn metoprolol ER 25mg dailyOn lasix 20mg dialy Cannot do ACEI or ARB d/t allergyGet an apt with [facility] as per his wishes, as he wants to check his 'heart', he will see Dr Reed at 11.00am tomorrow Dr Reed 02/25/2022 , started on metoprolol 25mg dailyDr Reed 11/20/2022 Dr Reed 05/21/2023 , f/u in 6 months Type 2 pranay betes mellitus without complication 550391078 E11.9 On metformin 500mg po bidGet labsDr Rammacher 11/07/2021 Hyperlipidemia 43321891 E78.5 On ASAOn atorvastat in 20mg daily Get labs Pain in right hand 23338 42793 04075 M79.641 C/o R thumb pain, feels that there is swelling, feels better when he 'soaks it' in epsom saltsRefer to Dr Jovanna Nugent 02/17/2022 Leukopenia 59257028 D72. 819 Should get an apt with Dr Juan hematology Dr Juan 04/09/2022 , next in 3 months, referred again 07/29/2023 Dr Juan 12/23/2023 , f/u yearly Proteinuria 62419066 R80 .9 US kidney 02/15/2023 : Dr Prince RUVALCABA Benign pro static hyperplasia without outflow obstruction 289813972 N40.0 On flomax, started by Dr Prince RUVALCABA Alkaline p hosphatase above reference range 787223602 R74.8 Get liver and labs [id number] Urbano Khan DPM [facility] [address], [facility] [place] [address] 08/02/2024 14:31:32 08/03/2024 11:31:02 [id number] Rafael tran MD [facility] [address] [facility], [address] [address] 11/14/2024 09:16:50 11/14/2024 10:16:34 Screening - NAD 674069357 Z13.9 C-scope 06/29/12: Dr Titus n next in 10 years, ordered 07/23/2022 C-scope 09/25/2022 : Dr Quezada, next in 10 years Get yearly flu shotUTD #13 01/10/18, #23 08/08/19Ge t Tdap if not doneGet shingles shotUTD on COVID 19 vaccineGet RSV vaccine RTC 4 monthsdo labsER if worsehe did verbalize his understand ing of the above Essential hypertension 47062064 I10 ECHO: 06/26/2024 : [facility] On ASANot on HCTZ 12.5mg daily, states that Dr Prince RUVALCABA stopped and started on lasixOn amlodipine 10mg dailyOn metoprolol ER 25mg dailyOn lasix 20mg dialy Cannot do ACEI or ARB d/t allergyGet an apt with [facility] as per his wishes, as he wants to check his 'heart', he will see Dr Reed at 11.00am tomorrow Dr Reed 02/25/2022 , started on metoprolol 25mg dailyDr Brianna 11/20/2022 Dr Reed 05/21/2023 , f/u in 6 months Type 2 pranay betes mellitus without complication 419531761 E11.9 On metformin 500mg po bidGet labsDr Rammacher 11/07/2021 Hyperlipidemia 56671617 E78.5 On ASAOn atorvastat in 20mg daily Get labs Pain in right hand 05697 59904 15649 M79.641 C/o R thumb pain, feels that there is swelling, feels better when he 'soaks it' in epsom saltsRefer to Dr Jovanna Nugent 02/17/2022 Leukopenia 34970780 D72. 819 Should get an apt with Dr Juan hematology Dr Juan 04/09/2022 , next in 3 months, referred again 07/29/2023 Dr Juan 12/23/2023 , f/u yearly Proteinuria 35631977 R80 .9 On calcitriol US kidney 02/15/2023 : Dr Prince RUVALCABA Benign pro static hyperplasia without outflow obstruction 093461881 N40.0 On flomax, started by Dr Prince RUVALCABA Alkaline p hosphatase above reference range 928712113 R74.8 Get labsUS liver 08/24/2024 Health Concerns Section Related Observation LastModified by Organization Detai ls LastModified Time None Recorded Concern Status LastModified by Organization Details LastModified Time None Recorded Advance Directives Directive N: Patient declined informat ion. Payers Encounter Date Sequence Insurance Name Policy Number Policy Calvo Covered Member ID Calvo Member ID Guarantor Name 07/29/2023 1 [employer] (MEDICARE REPLACEMENT/ ADVANTAGE - HMO) Carlos A Cruz [id number] Carlos A Cruz 12/28/2023 1 [employer] (MEDICARE REPLACEMENT/ ADVANTAGE - HMO) Carlos A Cruz [id number] Carlos A Cruz 07/25/2024 1 [employer] (MEDICARE REPLACEMENT/ ADVANTAGE - HMO) Carlos A Elamer [id number] Carlos A Cruz 08/02/2024 1 [employer] (MEDICARE REPLACEMENT/ ADVANTAGE - HMO) Carlos A Cruz [id number] Carlos A Cruz 11/14/2024 1 [employer] (MEDICARE REPLACEMENT/ ADVANTAGE - HMO) Carlos A Cruz [id number] Carlos A Cruz Notes Date Note Type Note Provider Name and Address Organization Details Recorded Time 07/29/2023 text/html Here to deonna Vanegas Hx:HTNHLDReviewed social family and surgical historyHere to discuss above and perhaps get on medications and do labs OV 12/28/17:Here for his ruth ear flushes, he states that he is doing well otherwise, he did put the debroxHe states that he is taking the coreg OV 01/04/18:He is here to review labs, wants to know if he should be on the chol medicationDenies any complaints and states that he is doing 'great' OV 04/05/18:Here for his routine aptHe states that he is doing well at this timeHe has not done any new labs at this time OV 07/21/18:Here for his routine aptHe has done his labs on 07/04/18OV 08/04/18:Here for BP checkHe states that he is doing well at this timeHe did bring his BP logBP at home 160-170/80-90OV 09/06/18:Here for his BP check OV 11/22/18:Here for his routine aptHe feels that he is doing well at this timeHe did do the labs on 10/26/18 OV 08/08/19:Here for his routine aptHe feels 'great today' his ROS is negativeHe has not done labs, wants all his meds refilledHe did see urologist and did have prostate biopsy doneOV 02/20/2020:Tele visit and he is agreeable to do thisHe states that he is doing wellHe did do the labsOV 06/19/2020:Here for his routine aptHe feels very well he says he is doing a lot of his yard workHe did do the labsOV 11/20/2020;Here for his routine aptStates that he is doing well, he has done the blood work and is here to review theseHe is here also for his MWVOV 04/17/2021:Here for his routine aptHe is doing wellHe did do the labs OV 09/18/2021:Here for his routine aptHe is doing wellHe did do the labs on 09/16/2021 OV 01/15/2022:Here for his routine apt and MWV alsoHe feels wellHe did do the labsOV 07/23/2022:Here for his f/u apt and wellness visit, he is doing well, he is here for his wellness apt too, he has no new labs noted, did see cardiology and is now on metoprolol OV 04/29/2023: Here for his f/u apt, he is doing very well, no recent labs, but he did do the labs for Dr Prince RUVALCABA and also an US for the kidney OV 07/29/2023: Here for his f/u apt, he feels well today Rafael Oneal MD [address] [facility], [address], [place], [address], [place] [employer] 07/29/2023 12:03:34 12/28/2023 text/html Here to deonna Vanegas Hx:HTNHLDReviewed social family and surgical historyHere to discuss above and perhaps get on medications and do labs OV 12/28/17:Here for his ruth ear flushes, he states that he is doing well otherwise, he did put the debroxHe states that he is taking the coreg OV 01/04/18:He is here to review labs, wants to know if he should be on the chol medicationDenies any complaints and states that he is doing 'great' OV 04/05/18:Here for his routine aptHe states that he is doing well at this timeHe has not done any new labs at this time OV 07/21/18:Here for his routine aptHe has done his labs on 07/04/18OV 08/04/18:Here for BP checkHe states that he is doing well at this timeHe did bring his BP logBP at home 160-170/80-90OV 09/06/18:Here for his BP check OV 11/22/18:Here for his routine aptHe feels that he is doing well at this timeHe did do the labs on 10/26/18 OV 08/08/19:Here for his routine aptHe feels 'great today' his ROS is negativeHe has not done labs, wants all his meds refilledHe did see urologist and did have prostate biopsy doneOV 02/20/2020:Tele visit and he is agreeable to do thisHe states that he is doing wellHe did do the labsOV 06/19/2020:Here for his routine aptHe feels very well he says he is doing a lot of his yard workHe did do the labsOV 11/20/2020;Here for his routine aptStates that he is doing well, he has done the blood work and is here to review theseHe is here also for his MWVOV 04/17/2021:Here for his routine aptHe is doing wellHe did do the labs OV 09/18/2021:Here for his routine aptHe is doing wellHe did do the labs on 09/16/2021 OV 01/15/2022:Here for his routine apt and MWV alsoHe feels wellHe did do the labsOV 07/23/2022:Here for his f/u apt and wellness visit, he is doing well, he is here for his wellness apt too, he has no new labs noted, did see cardiology and is now on metoprolol OV 04/29/2023: Here for his f/u apt, he is doing very well, no recent labs, but he did do the labs for Dr Prince RUVALCABA and also an US for the kidney OV 07/29/2023: Here for his f/u apt, he feels well today, he did do the labs for Dr Juan also, and now will see him once a year Rafael Oneal MD [address] [facility], [address], [place], [address], [place] [facility] [employer] [facility] 12/28/2023 10:33:07 07/25/2024 text/html Here to deonna Vanegas Hx:HTNHLDReviewed social family and surgical historyHere to discuss above and perhaps get on medications and do labs OV 12/28/17:Here for his ruth ear flushes, he states that he is doing well otherwise, he did put the debroxHe states that he is taking the coreg OV 01/04/18:He is here to review labs, wants to know if he should be on the chol medicationDenies any complaints and states that he is doing 'great' OV 04/05/18:Here for his routine aptHe states that he is doing well at this timeHe has not done any new labs at this time OV 07/21/18:Here for his routine aptHe has done his labs on 07/04/18OV 08/04/18:Here for BP checkHe states that he is doing well at this timeHe did bring his BP logBP at home 160-170/80-90OV 09/06/18:Here for his BP check OV 11/22/18:Here for his routine aptHe feels that he is doing well at this timeHe did do the labs on 10/26/18 OV 08/08/19:Here for his routine aptHe feels 'great today' his ROS is negativeHe has not done labs, wants all his meds refilledHe did see urologist and did have prostate biopsy doneOV 02/20/2020:Tele visit and he is agreeable to do thisHe states that he is doing wellHe did do the labsOV 06/19/2020:Here for his routine aptHe feels very well he says he is doing a lot of his yard workHe did do the labsOV 11/20/2020;Here for his routine aptStates that he is doing well, he has done the blood work and is here to review theseHe is here also for his MWVOV 04/17/2021:Here for his routine aptHe is doing wellHe did do the labs OV 09/18/2021:Here for his routine aptHe is doing wellHe did do the labs on 09/16/2021 OV 01/15/2022:Here for his routine apt and MWV alsoHe feels wellHe did do the labsOV 07/23/2022:Here for his f/u apt and wellness visit, he is doing well, he is here for his wellness apt too, he has no new labs noted, did see cardiology and is now on metoprolol OV 04/29/2023: Here for his f/u apt, he is doing very well, no recent labs, but he did do the labs for Dr Prince RUVALCABA and also an US for the kidney OV 07/29/2023: Here for his f/u apt, he feels well today, he did do the labs for Dr Juan also, and now will see him once a year OV 07/25/2024: Here for his f/u apt, he is doing well today, he did do the labs Rafael Oneal MD [address] [facility], [address], [place], [address], [place] [facility] [employer] [facility] 07/25/2024 10:24:14 08/02/2024 text/html Pt NIDDM pt RTC for c/o thick,painful incurvated discolored nails both feet. Urbano Khan, DPM [address] [facility], [address], [place], [address], [place] [facility] 08/03/2024 09:18:04 11/14/2024 text/html Here to deonna Vanegas Hx:HTNHLDReviewed social family and surgical historyHere to discuss above and perhaps get on medications and do labs OV 12/28/17:Here for his ruth ear flushes, he states that he is doing well otherwise, he did put the debroxHe states that he is taking the coreg OV 01/04/18:He is here to review labs, wants to know if he should be on the chol medicationDenies any complaints and states that he is doing 'great' OV 04/05/18:Here for his routine aptHe states that he is doing well at this timeHe has not done any new labs at this time OV 07/21/18:Here for his routine aptHe has done his labs on 07/04/18OV 08/04/18:Here for BP checkHe states that he is doing well at this timeHe did bring his BP logBP at home 160-170/80-90OV 09/06/18:Here for his BP check OV 11/22/18:Here for his routine aptHe feels that he is doing well at this timeHe did do the labs on 10/26/18 OV 08/08/19:Here for his routine aptHe feels 'great today' his ROS is negativeHe has not done labs, wants all his meds refilledHe did see urologist and did have prostate biopsy doneOV 02/20/2020:Tele visit and he is agreeable to do thisHe states that he is doing wellHe did do the labsOV 06/19/2020:Here for his routine aptHe feels very well he says he is doing a lot of his yard workHe did do the labsOV 11/20/2020;Here for his routine aptStates that he is doing well, he has done the blood work and is here to review theseHe is here also for his MWVOV 04/17/2021:Here for his routine aptHe is doing wellHe did do the labs OV 09/18/2021:Here for his routine aptHe is doing wellHe did do the labs on 09/16/2021 OV 01/15/2022:Here for his routine apt and MWV alsoHe feels wellHe did do the labsOV 07/23/2022:Here for his f/u apt and wellness visit, he is doing well, he is here for his wellness apt too, he has no new labs noted, did see cardiology and is now on metoprolol OV 04/29/2023: Here for his f/u apt, he is doing very well, no recent labs, but he did do the labs for Dr Prince RUVALCABA and also an US for the kidney OV 07/29/2023: Here for his f/u apt, he feels well today, he did do the labs for Dr Juan also, and now will see him once a year OV 07/25/2024: Here for his f/u apt, he is doing well today, he did do the labs OV 11/14/2024: Here for his f/u apt, he feels very well today, no new labs, he is to see Dr Prince RUVALCABA and get labs thru his office, he has also seen Dr Brianna Oneal MD [address] [place] [address], [place] [address], [place], [address], [place] [facility] 11/14/2024 10:32:18
[2024-12-21 16:37] LABS: Anion Gap 11 mmol/L (4-12); Blood Urea Nitrogen 17 mg/dL (9-20); Calcium 9.6 mg/dL (8.4-10.2); Carbon Dioxide 25 mmol/L (22-30); Chloride 103 mmol/L (98-107); Estimated Glomerular Filt Rate > 60; Glucose 101 mg/dL (65-110); Potassium 4.6 mmol/L (3.4-5.0); Sodium 139 mmol/L (137-145)
== END 2024-12-21 13:03 | disposition home or self-care (01) ==
PROVIDERS: PCP Internal Medicine; Visit Provider Internal Medicine Hematology & Oncology
DX: D72.819 Decreased white blood cell count, unspecified (principal)
CPT/HCPCS: 36415; 80048; 85025